=== PATIENT | female | born 1970 | race Caucasian/White ===

== ENCOUNTER 2016-10-31 20:16 | Emergency (ER) | payer OTHER ==
[2016-10-31 20:22] VITALS: TEMP 98.6
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
[2016-10-31] MEDS ORDERED: IOPAMIDOL (ISOVUE-300) 100 ML BTL ONE (21:17)
[2016-10-31 22:10] VITALS: BP 134/85; PULSE 80; RESP 16; O2SAT 94
== END 2016-10-31 22:10 | disposition home or self-care (01) ==
DX: S39.91XA Unspecified injury of abdomen, initial encounter (principal); Z85.028 Personal history of other malignant neoplasm of stomach; V49.40XA Driver injured in collision with unspecified motor vehicles in traffic accident, initial encounter; Y92.410 Unspecified street and highway as the place of occurrence of the external cause; Y99.8 Other external cause status; Y93.89 Activity, other specified
CPT/HCPCS: 82947-QW; Q9967

== ENCOUNTER 2017-03-20 06:07 | Day surgery (SDC) | payer OTHER ==
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
[~2017-03-20 06:07] MED LIST: ceFAZolin 2 GM/SWFI 2 GM/20 ML SYR IVP ONE
[2017-03-20] MEDS ORDERED: LIDOCAINE 1% 2 ML INJ ID PRN (06:17)
[2017-03-20] MEDS ORDERED: LR 1,000 ML IV ONE (06:17)
[2017-03-20] MEDS ORDERED: SILVER NITRATE APPLICATOR 1 APPL TP ONE (06:33)
[2017-03-20 06:36] VITALS: PULSE 80
[2017-03-20] MEDS ORDERED: MIDAZOLAM 2 MG/2 ML VIAL IVP ONE (08:01)
--- NOTE | 2017-03-20 08:05 | PDANEPAE ---
ANE History of Present Illness Hysteroscopy ANE Past Medical History - Cardiovascular History Hx Hypertension: No Hx Arrhythmias: No Hx Chest Pain: No Hx Coronary Artery / Peripheral Vascular Disease: No Hx CHF / Valvular Disease: No Hx Palpitations: No - Pulmonary History Hx COPD: No Hx Asthma/Reactive Airway Disease: No Hx Recent Upper Respiratory Infection: No Hx Oxygen in Use at Home: No Hx Sleep Apnea: No Sleep Apnea Screening Result - Last Documented: Negative - Neurologic History Hx Cerebrovascular Accident: No Hx Seizures: No Hx Dementia: No - Endocrine History Hx Diabetes: No Hypothyroid: No Hyperthyroid: No Obesity: mild - Renal History Hx Renal Disorders: No - Liver History Hx Hepatic Disorders: No - Neurological & Psychiatric Hx Hx Neurological and Psychiatric Disorders: No - Cancer History Hx Cancer: Yes Cancer History Comment: STOMACH CANCERS metastasised to lymph,spleen,intestines - Congenital Disorder History Hx Congenital Disorders: No - GI History GERD: moderate Hx Gastrointestinal Disorders: Yes Gastrointestinal History Comment: occ GERD - Other Health History Other Health History: Excessive uterine bleeding. BLOOD CLOTS PE'S AND DVTS-R leg/lungs. Filter was placed and D/C'd. Low Ferritin levels-iron infusion 12-04. - Chronic Pain History Chronic Pain: Yes (cramping) - Surgical History Prior Surgeries: placement of Beverly filter. subsequent removal -16. STOMACH CA (involving intestine,spleen lymph glands) SURGERY. Septoplasty ANE Review of Systems Review of Systems: - Exercise capacity METS (RN): 4 METS ANE Patient History - Allergies Allergies/Adverse Reactions: metoclopramide HCl [From Reglan] Allergy (Mild, Verified 03/06/17 13:49) Other-Enter Comments Penicillins Allergy (Mild, Verified 03/06/17 13:49) Rash adhesive tape Allergy (Verified 03/06/17 14:34) Other-Enter Comments morphine Allergy (Mild, Uncoded 04/08/16 13:18) Vomiting - Home Medications Home Medications: NK [No Known Home Meds] 03/06/17 [Last Taken Unknown] - NPO status NPO Since - Liquids (Date): 03/19/17 NPO Since - Liquids (Time): 22:00 NPO Since - Solids (Date): 03/19/17 NPO Since - Solids (Time): 18:00 - Anes Hx Anes Hx: post operative nausea - Smoking Hx Smoking Status: Never smoked Marijuana use: No - Family Anes Hx Family Hx Anesthesia Complications: NONE ANE Labs/Vital Signs - Vital Signs Blood Pressure: 127/78 Heart Rate: 80 Respiratory Rate: 16 O2 Sat (%): 94 Height: 162.56 cm Weight: 81.647 kg ANE Physical Exam - Airway Neck exam: FROM Mallampati Score: Class 3 Mouth exam: normal dental/mouth exam - Pulmonary Pulmonary: no respiratory distress, no rales or rhonchi - Cardiovascular Cardiovascular: regular rate and rhythym, no murmur, rub, or gallop - ASA Status ASA Status: II ANE Anesthesia Plan Anesthesia Plan: general endotracheal anesthesia
[2017-03-20] MEDS ORDERED: fentaNYL 250 MCG/5 ML INJ ONE (08:16)
[2017-03-20] MEDS ORDERED: GLYCOPYRROLATE 0.2 MG/1 ML VIAL ONE (08:17)
[2017-03-20] MEDS ORDERED: PROPOFOL/EMULSION 500 MG/50 ML BOTTLE IV ONE (08:17)
[2017-03-20] MEDS ORDERED: DEXAMETHASONE 4 MG/ML VIAL ONE (08:18)
[2017-03-20] MEDS ORDERED: ROCURONIUM 50 MG/5 ML VIAL ONE (08:18)
[2017-03-20] MEDS ORDERED: LIDOCAINE 2% 5 ML SDV ONE (08:18)
[2017-03-20] MEDS ORDERED: ONDANSETRON 4 MG/2 ML VIAL ONE (08:18)
[2017-03-20] MEDS ORDERED: ceFAZolin 2 GM/SWFI 2 GM/20 ML SYR IVP ONE (08:41)
--- NOTE | 2017-03-20 08:42 | PDHPUP ---
History & Physical Update H&P update statement: This history and physical update is based on an assessment of the patient which was completed after admission or registration (within 24 hours), but prior to the surgery/procedure.
[2017-03-20] MEDS ORDERED: KETOROLAC 30 MG/1 ML SDV ONE (09:09)
[2017-03-20] MEDS ORDERED: LABETALOL HCL 5 MG/ML 20 ML MDV IVP PRN (09:15)
[2017-03-20] MEDS ORDERED: LR 500 ML IV PRN (09:15)
[2017-03-20] MEDS ORDERED: HYDROmorphONE/DILAUDID 1 MG/ML INJ IVP PRN (09:15)
[2017-03-20] MEDS ORDERED: NALOXONE HCL 0.4 MG/ML INJ IVP PRN (09:15)
[2017-03-20] MEDS ORDERED: ONDANSETRON 4 MG/2 ML VIAL IVP PRN (09:15)
[2017-03-20] MEDS ORDERED: SUGAMMADEX SODIUM 200 MG/2 ML VIAL IVP ONE (09:22)
[2017-03-20] MEDS ORDERED: IBUPROFEN 600 MG TAB PO PRN (09:32)
[2017-03-20] MEDS ORDERED: HYDROCODONE/APAP 5/325 TAB PO PRN (09:33)
--- NOTE | 2017-03-20 09:35 | POSTOPPROG ---
Post Op Note Date of Operation: 03/20/17 Surgeon: Monique Cook Anesthesiologist: Dr. Isis Mcelroy Anesthesia: GET(General Endotracheal) Pre-op Diagnosis: menomenorrhagia Post-op Diagnosis: same Procedure: Hysteroscopy Dilation and [place] Daniella endometrial ablation Findings: normal uterine cavity Inf/Abcess present in the surg proc area at time of surgery?: No Depth: Organ Space EBL: Minimal Total fluids administered: 800 Specimen(s): none
[2017-03-20] MEDS ORDERED: fentaNYL 100 MCG/2 ML INJ ONE (09:51)
[2017-03-20] MEDS: fentaNYL 100 MCG/2 ML INJ IVP PRN ×3 (09:54→10:33)
[2017-03-20] MEDS ORDERED: HYDROCODONE/APAP 5/325 TAB ONE (10:51)
--- NOTE | 2017-03-20 11:05 | POSTANESTH ---
Post Anesthetic Evaluation Cardiovascular Status: Normal, Stable Respiratory Status: Normal, Stable Level of Consciousness/Mental Status: Can Participate in Eval Pain Control: Adequate, Prn Tx Ordered Nausea/Vomiting Control: Adequate, Prn Tx Ordered Complications Possibly Related to Anesthesia: None Noted
[2017-03-20 11:51] VITALS: BP 124/88; O2SAT 93
[2017-03-20 11:54] VITALS: RESP 16; TEMP 98.1
--- NOTE | 2017-03-20 22:47 | GOP ---
[f rep st] OPERATIVE REPORT DATE OF OPERATION: 03/20/2017 SURGEON: Monique Cook MD ANESTHESIA: General. ANESTHESIOLOGIST: Isis Mcelroy MD PREOPERATIVE DIAGNOSIS: Menometrorrhagia and symptomatic anemia. POSTOPERATIVE DIAGNOSIS: Menometrorrhagia and symptomatic anemia. PROCEDURE PERFORMED: Hysteroscopy, dilation and curettage, and Daniella endometrial ablation. FINDINGS: INDICATIONS: The patient is a 46-year-old 2, para 2-0-0-2 with a history of stage II gastric carcinoma diagnosed in 2014. She is status post surgery, chemotherapy, and radiation for her cancer and is in remission. Patient initially had amenorrhea during her cancer treatment, but she has had a recurrence of her periods and they have gotten much worse. She has severe bleeding, passing clots multiple days a month causing symptomatic anemia. The patient has had multiple blood transfusions an d evaluation of her anemia as a function of her carcinoma versus her menometrorrhagia and we feel lexy t it is mostly a symptom of her menometrorrhagia. The patient had a pelvic ultrasound which revealed a normal thin endometrial canal 3.36 cm. No masses or increased flow. A small corpus luteum cyst o n her left ovary. No other significant findings on her ultrasound. We discussed treatment options, medical management with a Mirena IUD versus surgical management, hysteroscopy, D and C, and ablation versus a total laparoscopic hysterectomy. Because of her compromised medical situation, because of h er history of cancer and likely increased adhesions, we wanted to avoid abdominal surgery and so the patient opted to have a hysteroscopy, D and C, and ablation. The patient underwent an endometrial bi opsy in my office, showed normal secretory endometrium, no evidence of hyperplasia or malignancy. Th e patient was consented for the procedure. She understood the risks and benefits. The risks includi ng bleeding, infection, damage to the uterus including possible risk of perforation, damage to other organs if perforation were to occur, incomplete treatment of the bleeding with need for additional pr ocedures. She understood these risks and benefits and agreed to proceed. DESCRIPTION OF PROCEDURE: Patient was taken to the operating room where she was placed under general anesthesia without difficulty. She was prepped and draped in the dorsal lithotomy position and her bladder had previously been drained. After adequate anesthesia was assured and a WHO time-out was pe rformed, an open-sided speculum was placed in the vagina, and a Romero tenaculum was used to grasp th e anterior lip of the cervix. The uterus sounded to 9 cm and the cervix was then progressively dilat ed with Botello dilators to a #8. The Daniella uterine manipulator was placed to calculate the length o f the cervical canal, which was 5 cm, giving a cavity length of 4. The hysteroscope was then gently advanced from the cervix to the fundus, and visualization of the uterine cavity revealed no obvious a bnormalities. No polyps or fibroids or even thickened endometrium in the endometrial canal. The hys teroscope was then removed. The Daniella endometrial ablation was gently advanced from the cervix to the fundus. The balloon was inflated and the cavity assessments were passed x2. Ablation took place over 120 seconds. The patient tolerated it well. The ablation device was removed and a final look with the hysteroscope revealed an intact endometrium with a normal good charred appearance. [place] m was removed. There was no bleeding at the level of the cervix. The patient tolerated the procedur e well. Sponge, lap, needle, and instrument counts were correct x2. The patient went to the recover y room in good condition. Estimated blood loss for the procedure was less than 10 cc. Fluid replace ment was 800 cc IV fluids. IV fluid deficit was inadequately calculated because of the setup on the fluid management system, however, estimated to be less than 50 cc. /[id number]/MODL
== END 2017-03-20 11:57 | disposition home or self-care (01) ==
LOC: FSGY 06:07
PROVIDERS: ATTEND Obstetrics & Gynecology
PROC: 0U5B8ZZ Destruction of Endometrium, Via Natural or Artificial Opening Endoscopic (ICD-10-PCS; principal; 2017-03-20 08:15)
DX: N92.1 Excessive and frequent menstruation with irregular cycle (principal); D64.9 Anemia, unspecified; Z85.028 Personal history of other malignant neoplasm of stomach
CPT/HCPCS: J0690; J1100; J1885; J2250; J2405; J2704; J3010

== ENCOUNTER → 2017-04-09 | Outpatient (CLI) | payer OTHER | LOC: FIMAGING 11:25 | PROVIDERS: ATTEND Family Medicine | DX: Z12.31 Encounter for screening mammogram for malignant neoplasm of breast (principal) | CPT/HCPCS: G0202 ==

== ENCOUNTER → 2017-04-16 | Outpatient (CLI) | payer OTHER | LOC: FIMAGING 10:37 | PROVIDERS: ATTEND Family Medicine | DX: R92.8 Other abnormal and inconclusive findings on diagnostic imaging of breast (principal) ==

== ENCOUNTER 2017-09-21 10:03 | Emergency (ER) | payer OTHER ==
[2017-09-21] MEDS ORDERED: ONDANSETRON 4 MG/2 ML VIAL IVP ONE (10:57)
[2017-09-21] MEDS ORDERED: NS 1,000 ML IV ONE (10:57)
[2017-09-21] MEDS ORDERED: FAMOTIDINE 20 MG/NACL 50 ML IV ONE (10:57)
[2017-09-21 11:07] LABS: PLATELET COUNT 333 10^3/uL (150-400)
[2017-09-21] MEDS ORDERED: IOPAMIDOL (ISOVUE-300) 100 ML BTL ONE (11:47)
--- NOTE | 2017-09-21 11:47 | EDPHY ---
H & P Time Seen by Provider: 09/21/17 10:56 HPI/ROS: HPI Lower abdominal pain. 47-year-old female by private vehicle. This patient presents with right lower quadrant abdominal pain persistent since 5:30 a.m. This morning. She has had mild nausea but no vomiting. Denies any bloody or melenic stool. Describes having a normal bowel movement this morning. No diarrhea. Last meal was yesterday. Prior abdominal surgical history from stomach cancer. Appendix is still in. ROS: Constitutional: No fever, no chills. No weakness. Eyes: No discharge. No changes in vision. ENT: No sore throat. No nasal congestion or rhinorrhea. Respiratory: No cough. No shortness of breath. Cardiac: No chest pain, no palpitations. Gastrointestinal: As above, no vomiting, no diarrhea. Genitourinary: No hematuria. No dysuria or increased frequency with urination. Musculoskeletal: No back pain. No neck pain. No myalgias or arthralgias. Skin: No rashes. Neurological: No headache. No focal weakness or altered sensation. Past medical history: Stomach cancer, gastric ulcer, anemia, bilateral lower extremity DVT, bilateral PE, splenectomy, colectomy, partial gastrectomy, Beverly filter installed. She is not currently anticoagulated. Social history: Nonsmoker. Here by herself. No alcohol. Physical Exam: General Appearance: Alert, no distress. This patient is responding to questions appropriately and in full sentences. This patient appears well- hydrated and well-nourished. Eyes: Pupils equal and round no pallor or injection. No lid edema, erythema or injection. Respiratory: There are no retractions, lungs are clear to auscultation with good air movement bilaterally. Cardiovascular: Regular rate and rhythm. No murmur. Gastrointestinal: Abdomen is soft with moderate tenderness on palpation of the right lower quadrant, no masses, bowel sounds normal. No focal tenderness at McBurney's point. No Wynn sign. Neurological: Motor sensory function is grossly intact. Cranial nerves are normal. Gait is normal. Skin: Warm and dry, no rashes. Musculoskeletal: No CVA tenderness on palpation bilaterally. Extremities are symmetrical. All joints range without pain or impingement. Psychiatric: No agitation. No depression. Database: EKG: Imaging: CT scan of abdomen and pelvis with IV contrast: The appendix is well visualized and is normal. There is some mild thickening of the transverse colon may represent subacute colitis. No other significant abnormalities. Results were discussed with staff radiologist Dr. Leonel monsivais. Procedures: Emergency department course: Triage vital signs reviewed. She is moderately hypertensive. IV placed. She was started on IV normal saline with 1 L to be given over the next hour. At this time she is declining pain medications. She consents for CT imaging to evaluate her appendix. 12:30 p.m., patient re-evaluated. At this time she is resting comfortably. She has not required any pain medication. Repeat abdominal exam she is soft with mild and vague right lower abdominal tenderness on palpation. Results of CT scan discussed with her. She denies any significant urinary symptoms. Urinalysis noted to be positive for leukocyte esterase and myoglobin. She feels comfortable going home and I feel she is safe for discharge. I will give her a prescription for Keflex which she can fill should she developed urinary tract infection symptoms. Follow-up and return to emergency department precautions were discussed with her in detail. All of her questions were answered. She was discharged home in good condition. Differential Diagnosis: The differential diagnosis on this patient includes but is not limited to appendicitis, urinary tract infection, ureterolithiasis, ovarian cyst. This represents a partial list of diagnoses considered. These considerations are based on history, physical exam, past history, reassessment and diagnostic testing. Smoking Status: Never smoked Constitutional: Initial Vital Signs Temperature (C) 36.9 C 09/21/17 10:19 Heart Rate 95 09/21/17 10:19 Respiratory Rate 16 09/21/17 10:19 Blood Pressure 149/98 H 09/21/17 10:19 O2 Sat (%) 95 09/21/17 10:19 O2 Delivery Mode Room Air Allergies/Adverse Reactions: metoclopramide HCl [From Reglan] Allergy (Mild, Verified 09/21/17 10:18) Other-Enter Comments Penicillins Allergy (Mild, Verified 09/21/17 10:18) Rash adhesive tape Allergy (Verified 09/21/17 10:18) Other-Enter Comments morphine Allergy (Mild, Uncoded 09/21/17 10:18) Vomiting Home Medications: Medication Instructions Recorded Ibuprofen [Motrin (*)] 600 mg PO Q6HRS PRN #30 tab 03/20/17 Levothyroxine 09/21/17 Nitrofurantoin Monohyd/M-Cryst 100 mg PO BID #14 capsule 09/21/17 [Macrobid 100 mg Capsule] Medical Decision Making - Diagnostics Imaging Results: Imaging Impressions Abdomen CT 09/21/17 11:43 Impression: 1. Normal appendix. No renal calculi or obstruction. 2. Segmental mild thickening and cervical fat proliferation of the distal transverse colon suggesting subacute infectious or inflammatory colitis. Findings were communicated by telephone with Dr. Celia Rene MD at 09/21/2017 12:16 - Data Points Laboratory Results: Laboratory Results 09/21/17 10:45 09/21/17 10:45 09/21/17 09/21/17 09/21/17 11:15 10:45 10:45 WBC RBC Hgb Hct MCV MCH MCHC RDW Plt Count MPV Neut % (Auto) Lymph % (Auto) Rooks % (Auto) Eos % (Auto) Baso % (Auto) Nucleat RBC Rel Count Absolute Neuts (auto) Absolute Lymphs (auto) Absolute Monos (auto) Absolute Eos (auto) Absolute Basos (auto) Absolute Nucleated RBC Immature Gran % Immature Gran # Sodium 139 mEq/L mEq/L (135-145) Potassium 4.4 mEq/L mEq/L (3.3-5.0) Chloride 104 mEq/L mEq/L (97-110) Carbon Dioxide 27 mEq/l mEq/l (22-31) Anion Gap 8 mEq/L mEq/L (8-16) BUN 13 mg/dL mg/dL (7-23) Creatinine 0.9 mg/dL mg/dL (0.6-1.0) Estimated GFR > 60 Glucose 91 mg/dL mg/dL (70-100) Calcium 9.2 mg/dL mg/dL (8.5-10.4) Total Bilirubin 0.8 mg/dL mg/dL (0.1-1.4) Conjugated Bilirubin 0.5 mg/dL mg/dL (0.0-0.5) Unconjugated Bilirubin 0.3 mg/dL mg/dL (0.0-1.1) AST 21 IU/L IU/L (14-46) ALT 23 IU/L IU/L (9-52) Alkaline Phosphatase 119 IU/L IU/L (38-126) Total Protein 7.1 g/dL g/dL (6.3-8.2) Albumin 3.8 g/dL g/dL (3.5-5.0) Lipase < 10 IU/L L IU/L (23-300) Beta HCG, Qual NEGATIVE Urine Color YELLOW Urine Appearance CLEAR Urine pH 5.0 (5.0-7.5) Ur Specific Sneads 1.013 (1.002-1.030) Urine Protein NEGATIVE (NEGATIVE) Urine Ketones NEGATIVE (NEGATIVE) Urine Blood 1+ H (NEGATIVE) Urine Nitrate NEGATIVE (NEGATIVE) Urine Bilirubin NEGATIVE (NEGATIVE) Urine Urobilinogen NEGATIVE EU EU (0.2-1.0) Ur Leukocyte Esterase 1+ H (NEGATIVE) Urine RBC 1-3 /hpf /hpf (0-3) Urine WBC 1-3 /hpf /hpf (0-3) Ur Epithelial Cells 1+ /lpf /lpf (NONE-1+) Urine Bacteria 1+ /hpf H /hpf (NONE SEEN) Urine Mucus TRACE /lpf /lpf (NONE-1+) Urine Glucose NEGATIVE (NEGATIVE) 09/21/17 10:45 WBC 11.43 10^3/uL H 10^3/uL (3.80-9.50) RBC 3.69 10^6/uL L 10^6/uL (4.18-5.33) Hgb 11.8 g/dL L g/dL (12.6-16.3) Hct 35.2 % L % (38.0-47.0) MCV 95.4 fL fL (81.5-99.8) MCH 32.0 pg pg (27.9-34.1) MCHC 33.5 g/dL g/dL (32.4-36.7) RDW 15.4 % H % (11.5-15.2) Plt Count 333 10^3/uL 10^3/uL (150-400) MPV 9.8 fL fL (8.7-11.7) Neut % (Auto) 80.6 % H % (39.3-74.2) Lymph % (Auto) 11.8 % L % (15.0-45.0) Rooks % (Auto) 6.3 % % (4.5-13.0) Eos % (Auto) 0.6 % % (0.6-7.6) Baso % (Auto) 0.4 % % (0.3-1.7) Nucleat RBC Rel Count 0.0 % % (0.0-0.2) Absolute Neuts (auto) 9.21 10^3/uL H 10^3/uL (1.70-6.50) Absolute Lymphs (auto) 1.35 10^3/uL 10^3/uL (1.00-3.00) Absolute Monos (auto) 0.72 10^3/uL 10^3/uL (0.30-0.80) Absolute Eos (auto) 0.07 10^3/uL 10^3/uL (0.03-0.40) Absolute Basos (auto) 0.05 10^3/uL 10^3/uL (0.02-0.10) Absolute Nucleated RBC 0.00 10^3/uL 10^3/uL (0-0.01) Immature Gran % 0.3 % % (0.0-1.1) Immature Gran # 0.03 10^3/uL 10^3/uL (0.00-0.10) Sodium Potassium Chloride Carbon Dioxide Anion Gap BUN Creatinine Estimated GFR Glucose Calcium Total Bilirubin Conjugated Bilirubin Unconjugated Bilirubin AST ALT Alkaline Phosphatase Total Protein Albumin Lipase Beta HCG, Qual Urine Color Urine Appearance Urine pH Ur Specific Sneads Urine Protein Urine Ketones Urine Blood Urine Nitrate Urine Bilirubin Urine Urobilinogen Ur Leukocyte Esterase Urine RBC Urine WBC Ur Epithelial Cells Urine Bacteria Urine Mucus Urine Glucose Medications Given: Discontinued Medications Sodium Chloride (Ns) 1,000 mls @ 0 mls/hr IV EDNOW ONE; Wide Open PRN Reason: Protocol Stop: 09/21/17 10:58 Last Admin: 09/21/17 11:23 Dose: 1,000 mls Famotidine/Sodium Chloride (Pepcid 20 Mg (Premix)) 50 mls @ 200 mls/hr IV EDNOW ONE Stop: 09/21/17 11:11 Last Admin: 09/21/17 11:22 Dose: 50 mls Ondansetron HCl (Zofran) 4 mg IVP EDNOW ONE Stop: 09/21/17 10:58 Last Admin: 09/21/17 11:28 Dose: Not Given Departure - Departure Disposition: Home, Routine, Self-Care Clinical Impression: Lower abdominal pain Condition: Good Instructions: Acute Abdominal Pain (ED) Additional Instructions: Read and follow provided instructions. Follow-up with your primary care physician in 1-2 days for re-evaluation. I have written you a prescription for nitrofurantoin. This is an antibiotic. He can fill this if he developed urinary tract infection symptoms such as fever , burning with urination or increased frequency with urination. Return to the emergency department for worsening abdominal pain, fever, vomiting , blood in your stool or other serious concerns. Referrals: Sterling Black MD [Primary Care Provider] - As per Instructions Prescriptions: Nitrofurantoin Monohyd/M-Cryst [Macrobid 100 mg Capsule] 100 mg PO BID #14 capsule
[2017-09-21 12:03] VITALS: BP 138/85
== END 2017-09-21 13:07 | disposition home or self-care (01) ==
DX: R10.31 Right lower quadrant pain (principal); E86.9 Volume depletion, unspecified; Z85.028 Personal history of other malignant neoplasm of stomach
CPT/HCPCS: 96365; J2405; Q9967

== ENCOUNTER → 2018-02-09 | Outpatient (CLI) | payer OTHER | LOC: FIMAGING 08:25 | PROVIDERS: ATTEND Internal Medicine Hematology & Oncology | DX: Z12.31 Encounter for screening mammogram for malignant neoplasm of breast (principal) ==

== ENCOUNTER 2018-04-30 20:32 | Emergency (ER) | payer OTHER ==
[2018-04-30] MEDS ORDERED: NS 500 ML IV ONE (22:11)
--- NOTE | 2018-04-30 22:16 | EDPHY ---
H & P Stated Complaint: SOB ON EXERTION, R CALF PAIN/HX DVT'S Time Seen by Provider: 04/30/18 22:00 HPI/ROS: HPI The patient presents with right calf swelling which has been present since today which started slowly and has gotten progressively worse. She notices an ache in her popliteal fossa in a sensation of warmth in the area. The symptoms are mild though feels similar to her prior DVT. She also notices that she is more short of breath on exertion. When she walks up a flight of stairs she has to sit and catch her breath. This started this afternoon. She says yesterday she would of been able to walk up the stairs without any difficulty. She does not have any chest pain or shortness of breath at rest. The patient has a history of gastric cancer which was diagnosed about 3 years ago. This was complicated by DVT PE which was initially treated with Lovenox and bridged to Coumadin and followed by an IVC filter. Her IVC filter was removed about 1 year ago. Her cancer is nearly in remission she believes. She is not undergoing any active treatments though is having surveillance imaging performed, last about [address] scan of her chest abdomen pelvis which was unremarkable.. REVIEW OF SYSTEMS 10 systems were reviewed and negative with the exception of the elements mentioned in the history of present illness. PMHx: History of gastric cancer status post chemotherapy, history of DVT and PE , previously with IVC filter that has been removed about 1 year ago, history of anemia requiring iron transfusions, oncologist is Dr. Meeks, primary care doctor is Dr. Sofia Jacinto Hx: Here with her PHYSICAL General Appearance: Alert, no distress Eyes: Pupils equal and round no pallor or injection ENT, Mouth: Mucous membranes moist Respiratory: There are no retractions, lungs are clear to auscultation Cardiovascular: Regular rate and rhythm Gastrointestinal: Abdomen is soft and non-tender, no masses, bowel sounds normal Neurological: A&O, moves all extremities Skin: Warm and dry, no rashes Musculoskeletal: Neck is supple non tender Extremities: right lower leg is slightly edematous with tenderness in the popliteal fossa and lateral area of warmth without any erythema, full range of motion Psychiatric: Patient is oriented X 3, there is no agitation Source: Patient Exam Limitations: No limitations - Personal History LMP (Females 10-55): Unknown Current Tetanus Diphtheria and Acellular Pertussis (TDAP): Yes Tetanus Vaccine Date: 2014 - Medical/Surgical History Hx Asthma: No Hx Chronic Respiratory Disease: No Hx Diabetes: No Hx Cardiac Disease: No Hx Renal Disease: No Hx Cirrhosis: No Hx Alcoholism: No Hx HIV/AIDS: No Hx Splenectomy or Spleen Trauma: Yes Other PMH: PMH:stomach cancer, gastric ulcer, anemia, bilat LE dvt, bilat PE, HYPOTHYROIDISM. PSH:septum surgery, dental, splenectomy, colectomy and partial gastrectomy, green filter insertion, ABLASION, IVC FILTER PLACED LATER REMOVAL - Social History Smoking Status: Never smoked Constitutional: Initial Vital Signs Temperature (C) 36.4 C 04/30/18 20:42 Heart Rate 84 04/30/18 20:42 Respiratory Rate 16 04/30/18 20:42 Blood Pressure 173/91 H 04/30/18 20:42 O2 Sat (%) 98 04/30/18 20:42 O2 Delivery Mode Room Air Allergies/Adverse Reactions: metoclopramide HCl [From Reglan] Allergy (Mild, Verified 09/21/17 10:18) Other-Enter Comments Penicillins Allergy (Mild, Verified 09/21/17 10:18) Rash adhesive tape Allergy (Verified 09/21/17 10:18) Other-Enter Comments morphine Allergy (Mild, Uncoded 09/21/17 10:18) Vomiting Home Medications: Medication Instructions Recorded Levothyroxine 09/21/17 Medical Decision Making - Diagnostics EKG Interpretation: EKG: Complete interpretation has been separately recorded in the [facility] archive. Summary impression: Normal sinus rhythm Imaging Results: Imaging Impressions Chest X-Ray 04/30/18 22:11 Impression: Question mild diskoid atelectasis or scarring in the lingula. No other findings for acute cardiopulmonary abnormality. Extremity Venous Study 04/30/18 22:11 Impression: No deep venous thrombosis right leg. Results called and discussed with Jud Madera MD at 04/30/2018 22:46. Imaging: Discussed imaging studies w/ call center director Radiologist, I viewed and interpreted images myself Differential Diagnosis: 48-year-old female with history of gastric cancer, DVT/PE, anemia requiring iron transfusions, presents from home with right calf swelling and pain as well as dyspnea on exertion for the last 1 day. Here, she has normal vital signs, is generally well-appearing, I do appreciate some mild right calf swelling and tenderness. Given that she is not on any anticoagulation and no longer has her IVC filter, she is certainly at risk for DVT PE, though her cancer does seem to be mostly in remission. Her vital signs are normal which is reassuring. She could have a Fuchs's cyst, pneumonia, CHF, anemia as cause of her symptoms as well. I do not think she has a cellulitis of her leg based on the clinical appearance of it. The patient was observed in the emergency department and maintained stable vital signs with no worsening of her symptoms. Labs were checked and were unremarkable including BNP and D-dimer. Chest x-ray and DVT ultrasound were normal. I suspect the patient's risk for pulmonary embolism is quite low even though she does have a history of this. With normal vital signs, no DVT on ultrasound , negative D-dimer, I do not think CT scan of her chest needs to be performed today. I did talk to the patient about the diagnostic uncertainty surrounding her presentation today. She could be developing a viral illness I suppose. I believe we have ruled out all emergency conditions that could be causing her shortness of breath and leg swelling. She feels comfortable going home, though I have encouraged low threshold to return to the emergency department if she is worse in any way. She can follow up with her primary care doctor in a few days if her symptoms continue. - Data Points Laboratory Results: Laboratory Results 04/30/18 22:05 04/30/18 22:05 04/30/18 04/30/18 04/30/18 22:05 22:05 22:05 WBC 8.53 10^3/uL 10^3/uL (3.80-9.50) RBC 3.79 10^6/uL L 10^6/uL (4.18-5.33) Hgb 12.3 g/dL L g/dL (12.6-16.3) Hct 36.4 % L % (38.0-47.0) MCV 96.0 fL fL (81.5-99.8) MCH 32.5 pg pg (27.9-34.1) MCHC 33.8 g/dL g/dL (32.4-36.7) RDW 16.0 % H % (11.5-15.2) Plt Count 297 10^3/uL 10^3/uL (150-400) MPV 9.9 fL fL (8.7-11.7) Neut % (Auto) 59.3 % % (39.3-74.2) Lymph % (Auto) 29.9 % % (15.0-45.0) [place] % (Auto) 8.9 % % (4.5-13.0) Eos % (Auto) 1.1 % % (0.6-7.6) Baso % (Auto) 0.6 % % (0.3-1.7) Nucleat RBC Rel Count 0.0 % % (0.0-0.2) Absolute Neuts (auto) 5.06 10^3/uL 10^3/uL (1.70-6.50) Absolute Lymphs (auto) 2.55 10^3/uL 10^3/uL (1.00-3.00) Absolute Monos (auto) 0.76 10^3/uL 10^3/uL (0.30-0.80) Absolute Eos (auto) 0.09 10^3/uL 10^3/uL (0.03-0.40) Absolute Basos (auto) 0.05 10^3/uL 10^3/uL (0.02-0.10) Absolute Nucleated RBC 0.00 10^3/uL 10^3/uL (0-0.01) Immature Gran % 0.2 % % (0.0-1.1) Immature Gran # 0.02 10^3/uL 10^3/uL (0.00-0.10) D-Dimer 0.48 ug/mLFEU ug/mLFEU (0.00-0.50) Sodium 134 mEq/L L mEq/L (135-145) Potassium 4.2 mEq/L mEq/L (3.5-5.2) Chloride 102 mEq/L mEq/L (97-110) Carbon Dioxide 30 mEq/l mEq/l (22-31) Anion Gap 2 mEq/L L mEq/L (6-14) BUN 14 mg/dL mg/dL (7-23) Creatinine 0.8 mg/dL mg/dL (0.6-1.0) Estimated GFR > 60 Glucose 96 mg/dL mg/dL (70-100) Calcium 9.2 mg/dL mg/dL (8.5-10.4) NT-Pro-B Natriuret Pep 100 pg/mL pg/mL (0-125) Medications Given: Discontinued Medications Sodium Chloride (Ns) 500 mls @ 1,000 mls/hr IV EDNOW ONE PRN Reason: Protocol Stop: 04/30/18 22:40 Last Admin: 04/30/18 22:49 Dose: 500 mls Departure - Departure Disposition: Home, Routine, Self-Care Clinical Impression: Shortness of breath, Leg edema, right Condition: Good Instructions: Shortness of Breath (ED) Additional Instructions: We did not figure out today what has been causing your shortness of breath and leg pain. Because of this, if your worse in any way or have any concerns, please return to the emergency department for recheck. Please make sure to take it easy over the next few days. If your symptoms do not resolve, please follow-up with your primary care doctor or return here. Referrals: Sterling Black MD [Primary Care Provider] - As per Instructions Bertram Meeks MD [Medical Doctor] - As per Instructions
[2018-04-30 22:19] LABS: PLATELET COUNT 297 10^3/uL (150-400)
[2018-04-30 23:04] VITALS: BP 137/95
== END 2018-04-30 23:08 | disposition home or self-care (01) ==
DX: R06.02 Shortness of breath (principal); R60.9 Edema, unspecified; E86.9 Volume depletion, unspecified; C16.9 Malignant neoplasm of stomach, unspecified; Z79.01 Long term (current) use of anticoagulants

== ENCOUNTER → 2018-06-01 | Outpatient (CLI) | payer OTHER | LOC: FIMAGING 16:44 | PROVIDERS: ATTEND Internal Medicine Hematology & Oncology | DX: M79.632 Pain in left forearm (principal); M25.532 Pain in left wrist ==

== ENCOUNTER → 2018-07-20 | Outpatient (CLI) | payer OTHER | LOC: FIMAGING 12:15 | PROVIDERS: ATTEND Surgery | DX: R10.11 Right upper quadrant pain (principal) | CPT/HCPCS: 78226; A9537 ==

== ENCOUNTER 2018-07-22 10:27 | Inpatient (IN) | payer OTHER ==
--- NOTE | 2018-07-22 08:00 | GHP ---
[f rep st] HISTORY AND PHYSICAL DATE OF ADMISSION: 07/22/2018 CHIEF COMPLAINT: Abdominal pain. HISTORY OF PRESENT ILLNESS: The patient is a 48-year-old woman with a history of stage IIIB gastric carcinoma, who underwent resection in March 2015. She had positive lymph nodes and a positive ext ernal margin. She then underwent radiation therapy and continued with 5-FU, which was completed in 2015. She has had intermittent abdominal pain, nausea, vomiting, including 2 ER visits. It can occur at random times as well as after meals. She has decreased eating due to this and has had w eight loss since then. She had a CT scan obtained of her chest, abdomen, and pelvis which showed no evidence of metastasis. There was persistent circumferential wall thickening of the mid to distal tr ansverse colon, and there was a contracted gallbladder. She followed and had a HIDA scan with absolu tely no filling of the gallbladder. She did have prompt uptake into the liver and excretion into the duodenum, and again, even after prolonged study, no uptake into the gallbladder indicating acute or chronic cholecystitis. PAST MEDICAL HISTORY: Iron deficiency anemia, gastric cancer, history of DVT/PE. PAST SURGICAL HISTORY: Partial gastrectomy. She also had POISER surgery. SOCIAL HISTORY: She is a nonsmoker. She is . FAMILY HISTORY: No family history of gastric cancer. REVIEW OF SYSTEMS: Abdominal pain, nausea, weight loss. No fevers or chills. PHYSICAL EXAMINATION: GENERAL: Pleasant, well-nourished, well-groomed woman. HEENT: Normocephalic . No gross hearing deficits. Mucous membranes moist. Pupils equal and round. LUNGS: Clear to aus cultation bilaterally. CARDIAC: Regular rate. No peripheral edema. ABDOMEN: Soft, tender. Previ ous scars noted. SKIN: Warm and dry. PSYCH: Mood and affect normal. RESULTS: Reviewed per HPI. IMPRESSION AND PLAN: The patient is a 48-year-old woman with history of gastric cancer, status post partial gastrectomy and radiation therapy, who now presents with acute versus chronic cholecystitis. I will take her to the operating room for a laparoscopic, possible open cholecystectomy. She unders tands the risks are higher in her due to her previous abdominal surgeries and radiation. Risks inclu de infection, bleeding, damage to surrounding structures such as the common bile duct. She understan ds she has a high risk of adhesions, and especially if this has been acute cholecystitis, that there may be more inflammation. She had her questions answered to her satisfaction, signed the informed co domenico. /[id number]/MODL
[2018-07-22] MEDS ORDERED: ceFAZolin 2 GM/DEXTROSE 100 ML IV ONE (10:41)
[2018-07-22] MEDS ORDERED: LR 1,000 ML IV ONE (10:41)
[2018-07-22] MEDS ORDERED: BUPIVACAINE 0.5% 30 ML SDV ONE (10:52)
[2018-07-22] MEDS ORDERED: MIDAZOLAM 2 MG/2 ML VIAL IVP ONE (11:30)
--- NOTE | 2018-07-22 11:31 | PDANEPAE ---
ANE History of Present Illness kellee garcia ANE Past Medical History - Cardiovascular History Hx Hypertension: No Hx Arrhythmias: No Hx Chest Pain: No Hx Coronary Artery / Peripheral Vascular Disease: No Hx CHF / Valvular Disease: No Hx Palpitations: No - Pulmonary History Hx COPD: No Hx Asthma/Reactive Airway Disease: No Hx Recent Upper Respiratory Infection: No Hx Oxygen in Use at Home: No Hx Sleep Apnea: No - Neurologic History Hx Cerebrovascular Accident: No Hx Seizures: No Hx Dementia: No - Endocrine History Hx Diabetes: No Hypothyroid: No Hyperthyroid: No Obesity: mild - Renal History Hx Renal Disorders: No - Liver History Hx Hepatic Disorders: No - Neurological & Psychiatric Hx Hx Neurological and Psychiatric Disorders: No - Cancer History Hx Cancer: Yes Cancer History Comment: 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 BLOOD CLOTS PE'S AND DVTS-R leg/lungs. Filter was placed and D/C'd. Low Ferritin levels-iron infusion -17. - Chronic Pain History Chronic Pain: Yes (cramping) - Surgical History Prior Surgeries: placement of Beverly filter. subsequent removal 3-16. STOMACH CA (involving intestine,spleen lymph glands) SURGERY. Septoplasty ANE Review of Systems Review of Systems: - Exercise capacity Exercise capacity: >=4 METS ANE Patient History - Allergies Allergies/Adverse Reactions: metoclopramide HCl [From Reglan] Allergy (Mild, Verified 09/21/17 10:18) Other-Enter Comments Penicillins Allergy (Mild, Verified 09/21/17 10:18) Rash adhesive tape Allergy (Verified 09/21/17 10:18) Other-Enter Comments morphine Allergy (Mild, Uncoded 09/21/17 10:18) Vomiting - Home Medications Home Medications: Levothyroxine 09/21/17 [Last Taken 07/21/18] - NPO status NPO Status: no food or drink >8 hours NPO Since - Liquids (Date): 07/21/18 NPO Since - Liquids (Time): 20:00 NPO Since - Solids (Date): 07/21/18 NPO Since - Solids (Time): 18:00 - Anes Hx Anes Hx: no prior problems - Smoking Hx Smoking Status: Never smoked - Family Anes Hx Family Hx Anesthesia Complications: NONE ANE Labs/Vital Signs - Vital Signs Blood Pressure: 143/94 Heart Rate: 67 Respiratory Rate: 16 O2 Sat (%): 98 Height: 162.56 cm Weight: 83.915 kg ANE Physical Exam - Airway Mallampati Score: Class 2 Mouth exam: normal dental/mouth exam - Pulmonary Pulmonary: no respiratory distress - Cardiovascular Cardiovascular: regular rate and rhythym - ASA Status ASA Status: II ANE Anesthesia Plan Anesthesia Plan: general endotracheal anesthesia
[2018-07-22] MEDS ORDERED: LIDOCAINE 2% 5 ML SDV ONE (12:04)
[2018-07-22] MEDS ORDERED: HYDROmorphONE/DILAUDID 2 MG/ML INJ ONE (12:05)
[2018-07-22] MEDS ORDERED: ONDANSETRON 4 MG/2 ML VIAL ONE ×2 (12:05→15:14)
[2018-07-22] MEDS ORDERED: DEXAMETHASONE 4 MG/ML VIAL ONE (12:05)
[2018-07-22] MEDS ORDERED: ROCURONIUM 100 MG/10 ML VIAL ONE (12:05)
[2018-07-22] MEDS ORDERED: KETOROLAC 30 MG/1 ML SDV ONE (12:05)
[2018-07-22] MEDS ORDERED: SUCCINYLCHOLINE CHLORIDE 200 MG/10 ML SYR IVP ONE (12:05)
[2018-07-22] MEDS ORDERED: PROPOFOL 200 MG/20 ML VIAL ONE (12:06)
[2018-07-22] MEDS ORDERED: ePHEDrine SULFATE 25 MG/5 ML SYR ONE (12:39)
[2018-07-22] MEDS ORDERED: GLYCOPYRROLATE 0.2 MG/1 ML VIAL ONE (12:41)
[2018-07-22] MEDS ORDERED: PHENYLEPHRINE HCL 100 MCG/ML SYR ONE (12:42)
[2018-07-22] MEDS ORDERED: ALBUMIN 5% 250 ML BOTTLE IV ONE (14:22)
[2018-07-22] MEDS ORDERED: SUGAMMADEX SODIUM 200 MG/2 ML VIAL IVP ONE ×2 (14:40→14:52)
[2018-07-22] MEDS ORDERED: traMADol 50 MG TAB PO PRN (14:47)
--- NOTE | 2018-07-22 14:50 | POSTOPPROG ---
Post Op Note Date of Operation: 07/22/18 Surgeon: Amy Morales Patternmaker Plastics: lester Anesthesiologist: franky Anesthesia: GET(General Endotracheal) Pre-op Diagnosis: cholecystitis Post-op Diagnosis: same Indication: 48 yo with cholecystitis hx gastric ca, resection radiation Procedure: lap jose Findings: contracted intrahepatic gallbladder Inf/Abcess present in the surg proc area at time of surgery?: No EBL: 100-500 Specimen(s): gallbladder and liver
[2018-07-22] MEDS ORDERED: ALBUTEROL 3 ML DEYVIAL IH PRN (15:08)
[2018-07-22] MEDS ORDERED: LR 500 ML IV PRN (15:08)
[2018-07-22] MEDS ORDERED: ONDANSETRON 4 MG/2 ML VIAL IVP PRN (15:08)
[2018-07-22] MEDS ORDERED: NALOXONE HCL 0.4 MG/ML INJ IVP PRN (15:08)
[2018-07-22] MEDS ORDERED: HYDROmorphONE/DILAUDID 1 MG/ML INJ ONE (15:13)
[2018-07-22] MEDS: HYDROmorphONE/DILAUDID 1 MG/ML INJ IVP PRN ×4 (15:17→19:26)
[2018-07-22] MEDS ORDERED: fentaNYL 100 MCG/2 ML INJ ONE (15:27)
[2018-07-22] MEDS: fentaNYL 100 MCG/2 ML INJ IVP PRN ×2 (15:28→15:36)
[2018-07-22] MEDS: HYDROCODONE/APAP 5/325 TAB PO PRN ×2 (16:39→17:30)
[2018-07-22] MEDS: NS 1,000 ML IV SCH (16:42)
--- NOTE | 2018-07-22 17:23 | SOAPPROG ---
SOAP Progress Note Assessment/Plan: Assessment: POD # 0 s/p very difficult intrahepatic lap jose. Drain with serosang. Having pain but tolerable. Plan: 07/22/18 17:23 Objective: Vital Signs Temp Pulse Resp BP Pulse Ox 36.4 C 75 16 134/82 H 99 07/22/18 16:31 07/22/18 16:31 07/22/18 16:31 07/22/18 16:31 07/22/18 16:31 Laboratory Results 07/22/18 14:37 07/21/18 07/22/18 07/23/18 05:59 05:59 05:59 Intake Total 2380 Output Total 620 Balance 1760 ICD10 Worksheet Patient Problems: Problems Problem Status Onset Hematemesis Acute Intractable vomiting with nausea Acute Leg swelling Acute Low hemoglobin and low hematocrit Acute Lower GI hemorrhage Acute Menometrorrhagia Acute Pulmonary embolism Acute Syncope and collapse Acute
[2018-07-22] MEDS ORDERED: ALBUTEROL 60 PUFFS/8 GM MDI IH PRN (17:30)
[2018-07-22] MEDS: ONDANSETRON 4 MG/2 ML VIAL IVP PRN (19:18)
[2018-07-22] MEDS: HYDROmorphONE/DILAUDID 6 MG/30 ML PCA IV PRN (20:26)
[2018-07-23] MEDS: ONDANSETRON 4 MG/2 ML VIAL IVP PRN (01:32)
[2018-07-23] MEDS: diphenhydrAMINE 12.5 MG/5 ML UDCUP PO PRN ×4 (01:38→21:54)
[2018-07-23 05:12] LABS: PLATELET COUNT 188 10^3/uL (150-400)
[2018-07-23] MEDS: LEVOTHYROXINE 100 MCG TAB PO SCH (05:52)
--- NOTE | 2018-07-23 07:14 | SOAPPROG ---
SOAP Progress Note Assessment/Plan: Assessment/Plan: POD # 1 s/p very difficult intrahepatic lap jose. Pain controlled Bilious drainage from BENJAMIN. HIDA to eval for bile leak Consult GI Clear liquid diet Dispo: inpatient for likely bile leak. Seen with Dr. Morales S: doing well this am, in good spirits. 2 episodes of emesis last night. nausea but much better today O: laying in bed, comfortable, NAD No increased WOB +BS, abd soft, nondistended, appropriately tender ruq BENJAMIN with sanguinous/bilious fluid Dressings changed Objective: Vital Signs Temp Pulse Resp BP Pulse Ox 37.0 C 90 16 140/84 H 92 07/23/18 06:00 07/23/18 06:00 07/23/18 06:00 07/23/18 06:00 07/23/18 06:00 Laboratory Results 07/23/18 04:36 07/23/18 04:36 07/22/18 07/23/18 07/24/18 05:59 05:59 05:59 Intake Total 2930 Output Total 1135 100 Balance 1795 -100 ICD10 Worksheet Patient Problems: Problems Problem Status Onset Hematemesis Acute Intractable vomiting with nausea Acute Leg swelling Acute Low hemoglobin and low hematocrit Acute Lower GI hemorrhage Acute Menometrorrhagia Acute Pulmonary embolism Acute Syncope and collapse Acute
[2018-07-23] MEDS: NS 1,000 ML IV SCH ×2 (10:32→22:47)
--- NOTE | 2018-07-23 12:29 | ASMTCMCOM ---
CM Note CM Note Notes: Pt admitted for gallbladder surgery, she has a hx of gastric carcinoma. She lives at home with her and works. No therapies ordered, anticipate she will dc home when medically stable. CM available for any changes. DC Plan: Independent Date Signed: 07/23/2018 12:28 PM Electronically Signed By:Pooja Bryan RN
--- NOTE | 2018-07-23 14:07 | PDMN ---
Medical Necessity Medical necessity: [facility] S365 Lap Jose, amb: 48 yo w/ acute cholecystitis s/p lap jose. Initally OBS but pt w/ post op complications as pt had very difficult intrahepatic lap jose per surgeon. Pt developed severe pain requiring dilaudid FIBERGLASS TECHNICIAN overnight and HIDA scan reveals bile leak. Change to IP status 07/23/18@1356 per MD order.
--- NOTE | 2018-07-23 14:58 | GCON ---
[f rep st] CONSULTATION CHIEF COMPLAINT: This is a 48-year-old woman status post cholecystectomy with bile leak. HISTORY OF PRESENT ILLNESS: I have been asked to see this very pleasant 48-year -old woman by Dr. Amy Morales in consultation for evaluation for post cholecystectomy bile leak. The patient has a history of stage IIIB gastric carcinoma and underwent resection in 2014. She was found to have positive lymph nodes and a positive external margin. She underwent radiation therapy, as well as 5-FU. She completed chemotherapy in June 2015. Recently, she has had some intermittent abdominal pain with nausea and vomiting, including 2 ER visits. She is also having some chest discomfort. She has decreased eating as a result and has lost weight. She had a CT scan of her chest, abdomen, and pelvis that showed no evidence of metastatic disease. She had some circumferential wall thickening of the distal and transverse colon, and a noted contracted gallbladder. She had a HIDA scan with no filling of the gallbladder. She did undergo a cholecystectomy, which was somewhat difficult per surgeon's report. Postop, she was noted to have output of bilious material from her BENJAMIN drain, as well as elevated liver function tests. She had a HIDA scan that showed radiotracer in the gallbladder fossa, as well as in the BENJAMIN drain suggesting a bile leak. She has had previous gastrectomy due to her prior history of gastric cancer. She had a Billroth II gastrectomy. I have been asked to see this patient for further evaluation. PAST MEDICAL HISTORY: Remarkable for iron deficient anemia, gastric cancer, history of DVT, and pulmonary embolus. PAST SURGICAL HISTORY: Remarkable for Billroth II gastrectomy and also previous CONVERTIBLE SOFA BEDSPRING TESTER surgery. SOCIAL HISTORY: Nonsmoker and nondrinker. She is . FAMILY HISTORY: Negative as it pertains to chief complaint. MEDICATIONS: Acetaminophen, hydrocodone, albuterol, diphenhydramine, Dilaudid, levothyroxine, Zofran, tramadol. ALLERGIES: Metoclopramide, penicillin, and adhesive tape, as well as morphine. REVIEW OF SYSTEMS: Negative for 10 systems other than that mentioned in HPI. PHYSICAL EXAM: VITAL SIGNS: Blood pressure 137/74, pulse 86, respiratory rate 16, and 92% saturation on room air. HEENT: Normocephalic, atraumatic. EOMI. Neck is supple. No cervical adenopathy. Mucous membranes moist. LUNGS: Clear. CARDIAC: Normal S1 and S2 without murmur. ABDOMEN: Remarkable for a drain in the right abdomen with bilious material. Slight tenderness to palpation. No hepatosplenomegaly. EXTREMITIES: Without clubbing, cyanosis, or edema. SKIN: Warm, dry, and intact. NEUROLOGIC: Nonfocal. PSYCHIATRIC: Alert and oriented x3 with normal affect. LABORATORY DATA: White count 13.5, hemoglobin 9.2, hematocrit 28.1, and platelets 188,000. Chemistries: Serum sodium 134, potassium 5.3, chloride 104 , CO2 of 24, BUN 13, creatinine 0.7, and blood sugar 101. Total bilirubin 0.7, AST 2888, ALT 2208, alkaline phosphatase 78, total protein 5.8, and albumin 3.2. IMPRESSION: A 48-year-old woman with prior history of gastric cancer, status post cholecystectomy. Patient with abnormal liver function tests and HIDA scan suggesting bile leak. The patient does have a difficult anatomy, Billroth II. This would make endoscopic retrograde cholangiopancreatography extremely complicated, with probably a less than 20% success rate. RECOMMENDATIONS: 1. Discussed the case with Dr. Martinez. 2. We will observe the patient over the weekend. 3. We will monitor output of the BENJAMIN drain. 4. If evidence of persistent leak, could consider an attempt at ERCP, but would recommend with the assistance of Interventional Radiology, jailyn. Would recommend having IR place a wire across the biliary system into the duodenum to facilitate ERCP. Will follow with you. Thank you for allowing me to participate in the care of this patient. /[id number]/MODL MTDD
[2018-07-23] MEDS: ACETAMINOPHEN 325 MG TAB PO PRN (15:01)
--- NOTE | 2018-07-23 15:30 | SOAPPROG ---
SOAP Progress Note Assessment/Plan: Assessment: Brief onc f/u note: - patient well known to me with Hx of Stage IIIB gastric CA dx 03/2015 s/p surgery/xrt/chemo and hx of iron deficiency due to GI blood loss now admitted with cholecystitis s/p cholecystectomy. So far there is no clinical evidence to support recurrent CA. Plan: - please ask the patient to follow up with me 1-2 weeks after discharge. We won' t follow on a regular basis during this hospitalization, but please call with questions or unexpected findings. Thanks. Subjective: Post op pain, but othewise feeling ok. Draining a fair amount of bile from drain. Objective: Vital Signs Temp Pulse Resp BP Pulse Ox 37.0 C 78 16 122/61 H 95 07/23/18 14:00 07/23/18 15:18 07/23/18 15:18 07/23/18 14:00 07/23/18 15:18 Laboratory Results 07/23/18 04:36 07/23/18 04:36 07/21/18 07/22/18 07/23/18 23:59 23:59 23:59 Intake Total 2930 Output Total 655 1600 Balance 2275 -1600 Physical Exam - Physical Exam General Appearance: alert, mild distress Skin: warm/dry Neuro/Psych: oriented x 3 ICD10 Worksheet Patient Problems: Problems Problem Status Onset Hematemesis Acute Intractable vomiting with nausea Acute Leg swelling Acute Low hemoglobin and low hematocrit Acute Lower GI hemorrhage Acute Menometrorrhagia Acute Pulmonary embolism Acute Syncope and collapse Acute
[2018-07-23] MEDS: HYDROmorphONE/DILAUDID 6 MG/30 ML PCA IV PRN (23:17)
[2018-07-24] MEDS: LEVOTHYROXINE 100 MCG TAB PO SCH ×2 (04:46→07:59)
[2018-07-24] MEDS: ACETAMINOPHEN 325 MG TAB PO PRN ×2 (07:18→15:27)
[2018-07-24] MEDS: ONDANSETRON 4 MG/2 ML VIAL IVP PRN ×2 (07:28→15:28)
[2018-07-24] MEDS: NS 1,000 ML IV SCH ×2 (10:26→21:05)
--- NOTE | 2018-07-24 10:33 | SOAPPROG ---
SOAP Progress Note Assessment/Plan: Assessment: POD # 2 s/p very difficult intrahepatic lap jose. Drain with bilous/ serosanguinous fluid. HIDA scan showed bile leak that is being evacuated well by BENJAMIN drain. GI consulted At this point we are both monitoring the output of the bile. I do not think that it is likely to seal on its own. However it is a little early to tell. 1 option would be surgical exploration and see if there is a specific duct that can be clipped. Another option would be a rendezvous procedure between IR and GI. CBC stable and LFTs worsening Patient reports little to no drainage around the drain exit site. Plan to repeat labs tomorrow S: Patient appears to be in good spirits today and is asking if/when she can start walking around the unit. She seems very motivated to be up and moving. Still with persistent RUQ pain O: General: Pleasant, well-nourished and well-groomed, appears to be feeling better since yesterday. at bedside HENT: Normocephalic, no gross hearing deficits, mucous membranes moist, pupils equal and round, no scleral icterus Lungs: Clear to auscultation bilaterally, No increased work of breathing Cardiac: Regular rate, no peripheral edema Abdomen: Bowel sounds present, soft and appropriately tender. Incisions clean dry and intact, BENJAMIN drain with bilious fluid. No drainage on dressing (changed 4 hours prior to us seeing her) Skin: Warm and dry. Psych: Mood and affect normal Neuro: Grossly intact Plan: 1. Continue to closely monitor bile output from BENJAMIN drain. If no decrease, or there is an increase it in the amount of drainage, will discuss proceeding with IR guided ERCP vs OR 2. Encourage ambulation around the unit as tolerated 3. Clears for now 4. Repeat LFTs tomorrow 07/22/18 17:23 07/24/18 10:26 07/24/18 10:34 07/24/18 10:38 07/24/18 11:20 Objective: Vital Signs Temp Pulse Resp BP Pulse Ox 36.9 C 96 16 132/64 H 92 07/24/18 07:40 07/24/18 07:40 07/24/18 07:40 07/24/18 07:40 07/24/18 07:40 Laboratory Results 07/24/18 04:55 07/24/18 04:55 07/23/18 07/24/18 07/25/18 05:59 05:59 05:59 Intake Total 2936 620 Output Total 4668 2422 325 Balance 1795 -1800 -325 ICD10 Worksheet Patient Problems: Problems Problem Status Onset Hematemesis Acute Intractable vomiting with nausea Acute Leg swelling Acute Low hemoglobin and low hematocrit Acute Lower GI hemorrhage Acute Menometrorrhagia Acute Pulmonary embolism Acute Syncope and collapse Acute
--- NOTE | 2018-07-24 13:53 | SOAPPROG ---
PETE Progress Note Assessment/Plan: Assessment: 1. Bile leak 2. 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 RUQ pain Plan: 1. Monitor BENJAMIN output and consistency for now 2. I feel that she may need further intervention for biliary drainage if not improved 5 days post-op 3. If ongoing leak then would attempt ERC after IR placement of biliary wire to help with facilitating access for endoscopic drainage 4. If a transhepatic biliary wire can be placed and ERC fails then IR can place a percutaneous internal/external biliary drain to treat the leak and internalize this later. 5. Will follow for now. Check AM LFTs, PT/INR and LFTs. 6. NPO after midnight 07/24/18 13:50 Subjective: CC: RUQ pain Bile leak Doing overall pretty well. Still with BENJAMIN output that is bilious and with ongoing RUQ pain. Objective: Vital Signs Temp Pulse Resp BP Pulse Ox 37.3 C 94 16 96/68 L 93 07/24/18 11:19 07/24/18 11:19 07/24/18 11:19 07/24/18 11:19 07/24/18 11:19 Laboratory Results 07/24/18 04:55 07/24/18 04:55 07/23/18 07/24/18 07/25/18 05:59 05:59 05:59 Intake Total 2930 620 Output Total 1135 2420 550 Balance 1795 -1800 -550 Physical Exam - Physical Exam General Appearance: no apparent distress EENT: normal ENT inspection Neck: supple Respiratory: lungs clear Cardiac/Chest: regular rate, rhythm Abdomen: soft, other (Mild TTP RUQ and epigastrium. BENJAMIN output bilious), No guarding, No rebound Skin: warm/dry, No jaundice Extremities: No pedal edema Neuro/Psych: alert, oriented x 3 ICD10 Worksheet Patient Problems: Problems Problem Status Onset Hematemesis Acute Intractable vomiting with nausea Acute Leg swelling Acute Low hemoglobin and low hematocrit Acute Lower GI hemorrhage Acute Menometrorrhagia Acute Pulmonary embolism Acute Syncope and collapse Acute
[2018-07-25 05:30] LABS: PLATELET COUNT 162 10^3/uL (150-400)
[2018-07-25] MEDS: LEVOTHYROXINE 100 MCG TAB PO SCH (06:07)
[2018-07-25] MEDS: ONDANSETRON 4 MG/2 ML VIAL IVP PRN ×2 (06:11→14:34)
[2018-07-25] MEDS: ACETAMINOPHEN 325 MG TAB PO PRN ×3 (06:11→23:48)
[2018-07-25] MEDS: NS 1,000 ML IV SCH ×2 (07:36→17:43)
--- NOTE | 2018-07-25 12:33 | SOAPPROG ---
PETE Progress Note Assessment/Plan: Assessment: 1. Bile leak 2. 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 RUQ pain 4. Elevated LFTs: suspect ischemia or cauterized injury 5. Leukocytosis Plan: 1. Monitor BENJAMIN output and consistency for now 2. I feel that she may need further intervention for biliary drainage if not improved 5 days post-op 3. If ongoing leak then will either need laparoscopic evaluation to see if a leak can be found and closed or ERC/rendezvous attempt for biliary stenting 4. If operative and endoscopic attempts are unsuccessful then percutaneous internal/external drainage should be done 5. Monitor LFTs. If ischemic or traumatic then should improve readily and already a bit better today 6. Monitor WBC. This is likely elevated from some component of the acute hepatitis and biliary peritonitis related to the leak 7. Clears today 07/25/18 12:29 Subjective: CC: RUQ pain intermittent and unchanged. Decreased biliary BENJAMIN output from yesterday. No fever, diarrhea, N/V Objective: Vital Signs Temp Pulse Resp BP Pulse Ox 37.0 C 71 14 98/53 L 90 L 07/25/18 11:34 07/25/18 11:34 07/25/18 11:34 07/25/18 11:34 07/25/18 11:34 Laboratory Results 07/25/18 04:31 07/24/18 04:55 07/24/18 07/25/18 07/26/18 05:59 05:59 05:59 Intake Total 620 1200 Output Total 2420 1455 560 Balance -1800 -1455 640 Physical Exam - Physical Exam General Appearance: no apparent distress EENT: pharynx normal Neck: supple Respiratory: lungs clear Cardiac/Chest: regular rate, rhythm Abdomen: soft, other (BENJAMIN drain bilious), No distended, No guarding, No rebound, No ascites ICD10 Worksheet Patient Problems: Problems Problem Status Onset Hematemesis Acute Intractable vomiting with nausea Acute Leg swelling Acute Low hemoglobin and low hematocrit Acute Lower GI hemorrhage Acute Menometrorrhagia Acute Pulmonary embolism Acute Syncope and collapse Acute
--- NOTE | 2018-07-25 14:48 | SOAPPROG ---
SOAP Progress Note Assessment/Plan: Assessment: POD # 3 s/p very difficult intrahepatic lap jose. Drain with bilous/ serosanguinous fluid. HIDA scan showed bile leak that is being evacuated well by BENJAMIN drain. GI consulted Bile output via the BENJAMIN drain has slowed significantly over the past 24 hours, which is a good indication that the leak might seal on its own. Continue to monitor closely. The other options would be surgical exploration to see if there is a specific duct that can be clipped, or a rendezvous procedure between IR and GI. Given patient's difficult anatomy, and overall improvement, watch and wait. LFTs improving, WBC increased Patient reports little to no drainage around the drain exit site. Immune vs inflammatory response. Denies fever/chills/malaise or any s/sx infection at all. Plan to repeat labs tomorrow to re-evaluate, monitor temp closely S: Patient has been ambulating well around the nursing unit, reports some improvement in pain since yesterday. Looks well. O: General: Pleasant, well-nourished and well-groomed, in good spirits. at bedside HENT: Normocephalic, no gross hearing deficits, mucous membranes moist, pupils equal and round, no scleral icterus Lungs: Clear to auscultation bilaterally, No increased work of breathing Cardiac: Regular rate, no peripheral edema Abdomen: Bowel sounds present, soft and appropriately tender. Incisions clean dry and intact, BENJAMIN drain with bilious fluid. Minimal bilious drainage on dressing Skin: Warm and dry. Psych: Mood and affect normal Neuro: Grossly intact Plan: 1. Continue to closely monitor bile output from BENJAMIN drain. If fails to decrease, or there is an increase it in the amount of drainage, will likely try diagnostic lap prior to IR guided ERCP 2. Encourage ambulation around the unit as tolerated 3. Clears for now, 4. Repeat CBC, LFTs tomorrow 07/22/18 17:23 07/24/18 10:26 07/24/18 10:34 07/24/18 10:38 07/24/18 11:20 07/25/18 14:45 07/25/18 14:49 07/25/18 15:35 Objective: Vital Signs Temp Pulse Resp BP Pulse Ox 37.0 C 71 14 98/53 L 90 L 07/25/18 11:34 07/25/18 11:34 07/25/18 11:34 07/25/18 11:34 07/25/18 11:34 Laboratory Results 07/25/18 04:31 07/24/18 04:55 07/24/18 07/25/18 07/26/18 05:59 05:59 05:59 Intake Total 620 1200 Output Total 0250 1450 300 Bbmgamb -4137 -0040 420 ICD10 Worksheet Patient Problems: Problems Problem Status Onset Hematemesis Acute Intractable vomiting with nausea Acute Leg swelling Acute Low hemoglobin and low hematocrit Acute Lower GI hemorrhage Acute Menometrorrhagia Acute Pulmonary embolism Acute Syncope and collapse Acute
[2018-07-25] MEDS: diphenhydrAMINE 12.5 MG/5 ML UDCUP PO PRN (15:23)
--- NOTE | 2018-07-25 19:10 | GOP ---
[f rep st] OPERATIVE REPORT DATE OF OPERATION: 07/23/2018 SURGEON: Amy Morales MD RUSTIC FENCE BUILDER: Red Klein MD. ANESTHESIA: General. ANESTHESIOLOGIST: Brent Coffey MD. PREOPERATIVE DIAGNOSIS: Acute versus chronic cholecystitis. POSTOPERATIVE DIAGNOSIS: Chronic cholecystitis. PROCEDURE PERFORMED: Laparoscopic cholecystectomy requiring 120 minutes longer than my usual time due to a contracted gallbladder that was intrahepatic. FINDINGS: Very thickened contracted gallbladder that is intrahepatic SPECIMENS: Gallbladder and liver. ESTIMATED BLOOD LOSS: 400 cc. INDICATIONS: The patient is a 48-year-old woman with a history of stage IIIB gastric carcinoma, status post gastrectomy with Christ-en-Y reconstruction, radiation and chemo. She has had increasing right upper quadrant pain that has been interfering with her life. She has had decreased appetite, decreased p.o. intake, and weight loss. Her imaging did not show any evidence of recurrence of her cancer. However, the gallbladder was contracted. I did follow this with a HIDA scan and there was prompt uptake into the biliary tree and excretion. However, the gallbladder did not fill. DESCRIPTION OF PROCEDURE: The patient was brought into the operating room, placed supine on the table, and general anesthesia was administered. Her abdomen was prepped and draped in the usual sterile fashion. I infiltrated all sites with 0.5% Marcaine prior to making incision. I elected to make an incision in the right mid abdomen due to her previous midline incision and radiation. I elevated her skin, subcutaneous tissues and I inserted the Veress needle. It passed the hanging drop test. Her abdomen insufflated easily to a pressure of 15 mmHg. I placed a 5 mm camera with a trocar at this site. I performed a small amount of adhesiolysis in order to place the 10 mm subxiphoid trocar, 5 mm trocar at the umbilicus, and another 5 mm trocar in the lower right costal margin. Her gallbladder was contracted and very difficult to grasp. I called my partner, Dr. Klein, to assist. I did not see any evidence of metastasis. I lifted her gallbladder cephalad and using a combination of sharp dissection, blunt dissection, suction dissection, as well as cautery, I began to try to expose the triangle of Calot. The anatomy in this area was not clear. I then began a dome down approach and at one point contents of the gallbladder were spilled. It was extremely thick and sludge filled. I continued my dissection and the gallbladder was extremely intrahepatic. There was bleeding from the liver bed. At 1 point, I saw a small vein and I used a clip avionics repair technician to obtain hemostasis. Using a combination of electrocautery and sharp dissection, I continued to remove the gallbladder away from the gallbladder fossa. I identified the cystic artery and I placed a stapler white load to divide this. Next, the cystic duct was difficult to clearly delineate as it was enlarged. There was only 1 structure entering the gallbladder, but it was a bit wider than normal. I was unable to obtain a cholangiogram. I did not think that opening would delineate this structure any further. I decided to dissect it very high on the gallbladder and I transected the duct with a blue load. The gallbladder was placed in an EndoCatch bag and retrieved via the 10 mm trocar. I placed QuikClot on the liver bed. Hemostasis achieved on the liver bed with a combination of clips, electrocautery , and QuikClot. The QuikClot was removed. Suction irrigation obtained. The staple lines were intact. There was no evidence of bile leak or bleeding at the end of the case. Due to this being complicated and taking at least 2 hours longer than my standard laparoscopic cholecystectomy, I left a 15 round silicone drain in the gallbladder fossa and it exited via a trocar site. It was sutured in place with silk. I removed the trocars under vision and allowed the abdomen to desufflate. I closed the fascia at the 10 mm trocar site with 0 Vicryl, skin closed with 4-0 Monocryl. Dermabond applied. She was awakened in the operating room, extubated, transferred to PACU in stable condition. /[id number]/MODL MTDD
[2018-07-25] MEDS: HYDROmorphONE/DILAUDID 6 MG/30 ML PCA IV PRN (23:48)
[2018-07-26 05:08] LABS: PLATELET COUNT 173 10^3/uL (150-400)
[2018-07-26] MEDS: LEVOTHYROXINE 100 MCG TAB PO SCH (05:19)
--- NOTE | 2018-07-26 09:08 | SOAPPROG ---
SOAP Progress Note Assessment/Plan: Assessment/Plan: 48yo F POD#4 s/p very difficult intrahepatic lap jose. Pain control SPEECH COACH Clear liquid diet Drain with bilious/serosanguinous fluid. HIDA scan showed bile leak that is being evacuated well by BENJAMIN drain. GI consulted Drain output volume decreasing. Continue to monitor Hopeful to avoid surgery - option for surgical exploration to see if there is a specific duct that can be clipped, or a rendezvous procedure between IR and GI. LFTs and WBCs improved today. Bilirubin increased - monitor Afebrile. VSS Encouraged ambulation. Dispo: continue inpt for bile leak, pain control and observations S: Patient has been ambulating well, continues to have RUQ pain c ontrolled with SPEECH COACH. tolerating clears, some nausea controlled with zofran. Headache improved with tylenol O: General: Pleasant, well-nourished and well-groomed, in good spirits. at bedside HENT: Normocephalic, no gross hearing deficits, mucous membranes moist, pupils equal and round, no scleral icterus Lungs: Clear to auscultation bilaterally, No increased work of breathing Cardiac: Regular rate, no peripheral edema Abdomen: Bowel sounds present, soft and appropriately tender. Incisions clean dry and intact, BENJAMIN drain with bilious fluid. Bilious drainage saturated dressing Skin: Warm and dry. Psych: Mood and affect normal Neuro: Grossly intact Objective: Vital Signs Temp Pulse Resp BP Pulse Ox 37.0 C 71 16 136/81 H 93 07/26/18 07:33 07/26/18 07:33 07/26/18 07:33 07/26/18 07:33 07/26/18 07:33 Laboratory Results 07/26/18 04:54 07/24/18 04:55 07/25/18 07/26/18 07/27/18 05:59 05:59 05:59 Intake Total 5767 Output Total 1455 1412 25 Balance -1455 885 -25 ICD10 Worksheet Patient Problems: Problems Problem Status Onset Hematemesis Acute Intractable vomiting with nausea Acute Leg swelling Acute Low hemoglobin and low hematocrit Acute Lower GI hemorrhage Acute Menometrorrhagia Acute Pulmonary embolism Acute Syncope and collapse Acute
[2018-07-26] MEDS: ONDANSETRON 4 MG/2 ML VIAL IVP PRN ×2 (12:11→20:12)
[2018-07-26] MEDS: ACETAMINOPHEN 325 MG TAB PO PRN ×2 (12:11→20:12)
--- NOTE | 2018-07-26 14:25 | SOAPPROG ---
SOAP Progress Note Assessment/Plan: Assessment: 1. Bile leak 2. 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 RUQ pain 4. Elevated LFTs: suspect ischemia or cauterized injury 5. Leukocytosis Plan: 1. Monitor BENJAMIN output and consistency for now 2. I feel that she may need further intervention for biliary drainage 3. If no real changes overnight I would favor a laparoscopic look and if unable to be identified or contained then IR/GI approach 4. LFTs in AM 5. WBC improved and I would suspect again improvement tomorrow 07/26/18 14:23 Subjective: CC: Bile leak ongoing. Leaking into drain pad which makes BENJAMIN output less reliable Objective: Vital Signs Temp Pulse Resp BP Pulse Ox 37.3 C 72 14 131/76 H 94 07/26/18 11:43 07/26/18 11:43 07/26/18 11:43 07/26/18 11:43 07/26/18 11:43 Laboratory Results 07/26/18 04:54 07/24/18 04:55 07/25/18 07/26/18 07/27/18 05:59 05:59 05:59 Intake Total 2297 Output Total 1455 1412 25 Balance -1455 885 -25 Physical Exam - Physical Exam General Appearance: no apparent distress EENT: pharynx normal, No scleral icterus (R), No scleral icterus (L) Neck: supple Respiratory: lungs clear Cardiac/Chest: regular rate, rhythm Abdomen: non-tender, soft, other (BENJAMIN RUQ with bilious drainage), No guarding, No rebound ICD10 Worksheet Patient Problems: Problems Problem Status Onset Hematemesis Acute Intractable vomiting with nausea Acute Leg swelling Acute Low hemoglobin and low hematocrit Acute Lower GI hemorrhage Acute Menometrorrhagia Acute Pulmonary embolism Acute Syncope and collapse Acute
--- NOTE | 2018-07-26 16:46 | ASMTCMCOM ---
CM Note CM Note Notes: Spoke with pt in the room, surrounded by her family. Pt states she is still comfortable with plan to discharge independently with support from . No therapies ordered. Pt may need to return to surgery for bile leak though managed conservatively at this point. DC date TBD. CM to follow. D/c Plan: Independent Date Signed: 07/26/2018 04:45 PM Electronically Signed By:Maty Souza
[2018-07-26] MEDS: NS 1,000 ML IV SCH (20:11)
[2018-07-26] MEDS: diphenhydrAMINE 12.5 MG/5 ML UDCUP PO PRN (20:12)
[2018-07-27] MEDS: LEVOTHYROXINE 100 MCG TAB PO SCH (05:11)
[2018-07-27] MEDS: ACETAMINOPHEN 325 MG TAB PO PRN (08:25)
[2018-07-27] MEDS: ONDANSETRON 4 MG/2 ML VIAL IVP PRN (08:26)
[2018-07-27] MEDS: NS 1,000 ML IV SCH (10:35)
--- NOTE | 2018-07-27 13:09 | SOAPPROG ---
SOAP Progress Note Assessment/Plan: Assessment: 1. Bile leak 2. 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 RUQ pain 4. Elevated LFTs: suspect ischemia or cauterized injury Plan: 1. To OR today for exploration to evaluate bile leak 2. LFTs continue to improve and I suspect related to cautery/difficult surgery and prolonged anesthesia 3. Leukocytosis improving also and felt to be due to acute hepatitis 4. If unsuccessful surgical closure then will plan for rendezvous ERC 5. NPO 07/27/18 13:06 Subjective: CC: Ongoing RUQ pain. Persistent biliary leak. Objective: Vital Signs Temp Pulse Resp BP Pulse Ox 36.9 C 68 14 126/70 H 95 07/27/18 11:17 07/27/18 11:54 07/27/18 11:54 07/27/18 11:17 07/27/18 11:54 Laboratory Results 07/27/18 04:08 07/27/18 04:08 07/26/18 07/27/18 07/28/18 05:59 05:59 05:59 Intake Total 2297 2750 1000 Output Total 1412 978 30 Balance 885 1772 970 Physical Exam - Physical Exam General Appearance: mild distress EENT: pharynx normal Neck: supple Respiratory: lungs clear Cardiac/Chest: regular rate, rhythm Abdomen: other (TTP. BENJAMIN drain bilious. Drain dressing bilious), No distended ICD10 Worksheet Patient Problems: Problems Problem Status Onset Hematemesis Acute Intractable vomiting with nausea Acute Leg swelling Acute Low hemoglobin and low hematocrit Acute Lower GI hemorrhage Acute Menometrorrhagia Acute Pulmonary embolism Acute Syncope and collapse Acute
[2018-07-27] MEDS ORDERED: BUPIVACAINE 0.5% 30 ML SDV ONE (14:35)
[2018-07-27] MEDS ORDERED: LR 1,000 ML IV ONE (14:40)
--- NOTE | 2018-07-27 15:06 | PDANEPAE ---
ANE History of Present Illness Exploratory laparoscopy ANE Past Medical History - Cardiovascular History Hx Hypertension: No Hx Arrhythmias: No Hx Chest Pain: No Hx Coronary Artery / Peripheral Vascular Disease: No Hx CHF / Valvular Disease: No Hx Palpitations: No - Pulmonary History Hx COPD: No Hx Asthma/Reactive Airway Disease: No Hx Recent Upper Respiratory Infection: No Hx Oxygen in Use at Home: No Hx Sleep Apnea: No Sleep Apnea Screening Result - Last Documented: Negative - Neurologic History Hx Cerebrovascular Accident: No Hx Seizures: No Hx Dementia: No - Endocrine History Hx Diabetes: No Hypothyroid: Yes Hyperthyroid: No Obesity: mild - Renal History Hx Renal Disorders: No - Liver History Hx Hepatic Disorders: No - Neurological & Psychiatric Hx Hx Neurological and Psychiatric Disorders: No - Cancer History Hx Cancer: Yes Cancer History Comment: 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 BLOOD CLOTS PE'S AND DVTS-R leg/lungs. Filter was placed and D/C'd. Low Ferritin levels-iron infusion 8- 17. Anemia - Chronic Pain History Chronic Pain: Yes (cramping) - Surgical History Prior Surgeries: placement of [place] filter. subsequent removal 3-16. STOMACH CA (involving intestine,spleen lymph glands) SURGERY. Septoplasty ANE Review of Systems Review of Systems: - Exercise capacity METS (RN): 3 METS ANE Patient History - Allergies Allergies/Adverse Reactions: metoclopramide HCl [From Reglan] Allergy (Mild, Verified 09/21/17 10:18) Other-Enter Comments Penicillins Allergy (Mild, Verified 09/21/17 10:18) Rash adhesive tape Allergy (Verified 09/21/17 10:18) Other-Enter Comments morphine Allergy (Mild, Uncoded 09/21/17 10:18) Vomiting - Home Medications Home Medications: Albuterol Sulfate [Proair Hfa] 1 - 2 puffs PO Q4H PRN 07/22/18 [Last Taken Unknown] Levothyroxine Sodium 100 mcg PO DAILY@06 07/22/18 [Last Taken 07/21/18] - NPO status NPO Since - Liquids (Date): 07/27/18 NPO Since - Liquids (Time): 11:00 NPO Since - Solids (Date): 07/24/18 NPO Since - Solids (Time): 18:00 - Anes Hx Anes Hx: no prior problems - Smoking Hx Smoking Status: Never smoked Marijuana use: No - Alcohol Use Alcohol Use: None - Family Anes Hx Family Anes Hx: none Family Hx Anesthesia Complications: NONE ANE Labs/Vital Signs - Labs Result Diagrams: 07/27/18 04:08 07/27/18 04:08 - Vital Signs Blood Pressure: 126/77 Heart Rate: 72 Respiratory Rate: 16 O2 Sat (%): 94 Height: 162.56 cm Weight: 83.915 kg ANE Physical Exam - Airway Neck exam: FROM Mallampati Score: Class 3 Mouth exam: normal dental/mouth exam - Pulmonary Pulmonary: clear to auscultation - Cardiovascular Cardiovascular: regular rate and rhythym - ASA Status ASA Status: III ANE Anesthesia Plan Anesthesia Plan: general endotracheal anesthesia
[2018-07-27] MEDS ORDERED: MIDAZOLAM 2 MG/2 ML VIAL IVP ONE (15:07)
[2018-07-27] MEDS ORDERED: fentaNYL 250 MCG/5 ML INJ ONE (15:11)
[2018-07-27] MEDS ORDERED: DEXAMETHASONE 4 MG/ML VIAL ONE (15:11)
[2018-07-27] MEDS ORDERED: PROPOFOL 200 MG/20 ML VIAL ONE (15:11)
[2018-07-27] MEDS ORDERED: ROCURONIUM 50 MG/5 ML VIAL ONE (15:11)
[2018-07-27] MEDS ORDERED: CEFAZOLIN 2 GM/DEXTROSE/100 ML BAG IV ONE (15:17)
[2018-07-27] MEDS ORDERED: ceFAZolin 2 GM/DEXTROSE 100 ML IV ONE (15:17)
[2018-07-27] MEDS ORDERED: ONDANSETRON 4 MG/2 ML VIAL ONE (16:05)
[2018-07-27] MEDS ORDERED: SUGAMMADEX SODIUM 200 MG/2 ML VIAL IVP ONE (16:05)
[2018-07-27] MEDS ORDERED: THROMBIN(HUM PLAS)/FIBRINOG/CA 5 ML VIAL TP ONE (16:30)
[2018-07-27] MEDS: levOFLOXACIN 500 MG/DEXTROSE 100 ML IV SCH (16:30)
--- NOTE | 2018-07-27 17:08 | POSTOPPROG ---
Post Op Note Date of Operation: 07/27/18 Surgeon: Amy Morales [employer] Technician: dianna Anesthesiologist: humphrey Anesthesia: GET(General Endotracheal) Pre-op Diagnosis: bile leak Post-op Diagnosis: same Indication: 48 yo with bile leak Procedure: diagnostic lap with clipping of duct of luschka Findings: leak from liver bed Inf/Abcess present in the surg proc area at time of surgery?: Yes Depth: Organ Space EBL: Minimal Specimen(s): none
[2018-07-27] MEDS ORDERED: KETOROLAC 30 MG/1 ML SDV ONE (17:10)
[2018-07-27] MEDS ORDERED: NALOXONE HCL 0.4 MG/ML INJ IVP PRN (17:11)
[2018-07-27] MEDS ORDERED: fentaNYL 100 MCG/2 ML INJ ONE (17:26)
[2018-07-27] MEDS: fentaNYL 100 MCG/2 ML INJ IVP PRN ×2 (17:28→17:35)
--- NOTE | 2018-07-27 17:40 | SOAPPROG ---
SOAP Progress Note Assessment/Plan: Assessment: POD # 5 s/p very difficult intrahepatic lap jose. Drain with bilous/ serosanguinous fluid. HIDA scan showed bile leak that is being evacuated well by BENJAMIN drain. GI consulted Bile output via the BENJAMIN drain has remained relatively stable over the last 24 hours, however there is noticeably more leakage around the drain site making recorded output unreliable. Plan for laparoscopy and attempt to resolve bile leak this afternoon. LFTs, WBC continuing to decrease Believe previous elevations 2/2 inflammation following difficult lap jose. Denies fever/chills/malaise or any s/sx infection at all. Plan to repeat labs tomorrow to re-evaluate, monitor temp closely S: Patient reports increased pain, malaise yesterday and today. Hasn't been able to ambulate d/t the pain. Is needing to use her [employer] pump more frequently. O: General: Pleasant, well-nourished and well-groomed. at bedside HENT: Normocephalic, no gross hearing deficits, mucous membranes moist, pupils equal and round, no scleral icterus Lungs: Clear to auscultation bilaterally, No increased work of breathing Cardiac: Regular rate, no peripheral edema Abdomen: Bowel sounds present, soft and appropriately tender. Incisions clean dry and intact, BENJAMIN drain with bilious fluid. Moderate bilious drainage on dressing Skin: Warm and dry. Psych: Mood and affect normal Neuro: Grossly intact 07/22/18 17:23 07/24/18 10:26 07/24/18 10:34 07/24/18 10:38 07/24/18 11:20 07/25/18 14:45 07/25/18 14:49 07/25/18 15:35 07/27/18 17:35 07/28/18 07:32 Objective: Vital Signs Temp Pulse Resp BP Pulse Ox 36.9 C 72 16 126/77 H 94 07/27/18 14:49 07/27/18 15:07 07/27/18 15:07 07/27/18 15:07 07/27/18 15:07 Laboratory Results 07/27/18 04:08 07/27/18 04:08 07/26/18 07/27/18 07/28/18 05:59 05:59 05:59 Intake Total 2297 2750 1000 Output Total 1412 978 440 Balance 885 1772 560 ICD10 Worksheet Patient Problems: Problems Problem Status Onset Hematemesis Acute Intractable vomiting with nausea Acute Leg swelling Acute Low hemoglobin and low hematocrit Acute Lower GI hemorrhage Acute Menometrorrhagia Acute Pulmonary embolism Acute Syncope and collapse Acute
[2018-07-27] MEDS ORDERED: HYDROmorphONE/DILAUDID 1 MG/ML INJ ONE (17:54)
[2018-07-27] MEDS: HYDROmorphONE/DILAUDID 1 MG/ML INJ IVP PRN ×2 (17:56→18:09)
--- NOTE | 2018-07-27 18:29 | POSTANESTH ---
Post Anesthetic Evaluation Cardiovascular Status: Normal, Stable Respiratory Status: Similar to Pre-op Cond. Level of Consciousness/Mental Status: Can Participate in Eval Pain Control: Adequate, Prn Tx Ordered Nausea/Vomiting Control: Adequate, Prn Tx Ordered Complications Possibly Related to Anesthesia: None Noted
[2018-07-28] MEDS: NS 1,000 ML IV SCH (00:20)
[2018-07-28] MEDS: HYDROmorphONE/DILAUDID 1 MG/ML INJ IVP PRN ×2 (01:22→08:35)
[2018-07-28] MEDS: HYDROCODONE/APAP 5/325 TAB PO PRN ×5 (03:26→20:56)
[2018-07-28] MEDS: LEVOTHYROXINE 100 MCG TAB PO SCH (05:33)
[2018-07-28] MEDS: ONDANSETRON DISINTEGRATING 4 MG TAB PO PRN (05:33)
[2018-07-28] MEDS: ACETAMINOPHEN 325 MG TAB PO PRN (06:06)
[2018-07-28] MEDS: levOFLOXACIN 500 MG/DEXTROSE 100 ML IV SCH (08:35)
[2018-07-28] MEDS: ONDANSETRON 4 MG/2 ML VIAL IVP PRN ×3 (08:35→20:54)
[2018-07-28 10:54] LABS: PLATELET COUNT 201 10^3/uL (150-400)
--- NOTE | 2018-07-28 10:54 | SOAPPROG ---
SOKRIS Progress Note Assessment/Plan: Assessment: 1. Bile leak 2. 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 RUQ pain 4. Elevated LFTs: suspect ischemia or cauterized injury Plan: 1. No bile in BENJAMIN drain this AM. Serous bloody but no bile (GREAT!) 2. RUQ improved since yesterday. 3. ADAT 4. Check LFTs and CBC today 5. Hopefully will avoid any need for ERC 07/28/18 10:52 Subjective: CC: RUQ pain improved. Objective: Vital Signs Temp Pulse Resp BP Pulse Ox 36.4 C 52 L 16 144/80 H 93 07/28/18 07:19 07/28/18 07:19 07/28/18 07:19 07/28/18 07:19 07/28/18 07:19 Laboratory Results 07/27/18 04:08 07/27/18 07/28/18 07/29/18 05:59 05:59 05:59 Intake Total 2750 3250 1200 Output Total 978 1065 140 Balance 1772 2185 1060 Physical Exam - Physical Exam General Appearance: no apparent distress Neck: supple Respiratory: lungs clear Cardiac/Chest: regular rate, rhythm Abdomen: soft, other (Mild TTP. No R/G. BENJAMIN blood and serous but no bile) ICD10 Worksheet Patient Problems: Problems Problem Status Onset Hematemesis Acute Intractable vomiting with nausea Acute Leg swelling Acute Low hemoglobin and low hematocrit Acute Lower GI hemorrhage Acute Menometrorrhagia Acute Pulmonary embolism Acute Syncope and collapse Acute
--- NOTE | 2018-07-28 15:42 | ASMTCMCOM ---
CM Note CM Note Notes: Chart reviewed and attempted to meet w Pt, but she was not available. Pt's Pain in RUQ has improved today. CM available if needs arise. PLAN: Pt will likely go home Independently. Date Signed: 07/28/2018 03:41 PM Electronically Signed By:Odalys Dixon
--- NOTE | 2018-07-28 16:34 | SOAPPROG ---
SOAP Progress Note Assessment/Plan: Assessment: s/p very difficult intrahepatic lap jose. Now s/p diagnostic laparoscopy with clipping duct of luschka. Better today Continue abx, advance diet S: Isabel feels better today O: General: Pleasant, well-nourished and well-groomed. at bedside HENT: Normocephalic, no gross hearing deficits, mucous membranes moist, pupils equal and round, no scleral icterus Lungs: Clear to auscultation bilaterally, No increased work of breathing Cardiac: Regular rate, no peripheral edema Abdomen: Bowel sounds present, soft and appropriately tender. Incisions clean dry and intact, BENJAMIN drain with SEROSANGUINOUS fluid. Skin: Warm and dry. Psych: Mood and affect normal Neuro: Grossly intact 07/22/18 17:23 07/24/18 10:26 07/24/18 10:34 07/24/18 10:38 07/24/18 11:20 07/25/18 14:45 07/25/18 14:49 07/25/18 15:35 07/27/18 17:35 07/28/18 07:32 07/28/18 16:32 Objective: Vital Signs Temp Pulse Resp BP Pulse Ox 36.4 C 62 16 120/67 93 07/28/18 16:00 07/28/18 16:00 07/28/18 16:00 07/28/18 16:00 07/28/18 16:00 Laboratory Results 07/28/18 10:43 07/27/18 04:08 07/27/18 07/28/18 07/29/18 05:59 05:59 05:59 Intake Total 2750 3250 1200 Output Total 978 1065 245 Balance 1772 2185 955 ICD10 Worksheet Patient Problems: Problems Problem Status Onset Hematemesis Acute Intractable vomiting with nausea Acute Leg swelling Acute Low hemoglobin and low hematocrit Acute Lower GI hemorrhage Acute Menometrorrhagia Acute Pulmonary embolism Acute Syncope and collapse Acute
[2018-07-29] MEDS: ONDANSETRON 4 MG/2 ML VIAL IVP PRN ×4 (00:59→22:08)
[2018-07-29] MEDS: LEVOTHYROXINE 100 MCG TAB PO SCH ×2 (05:17→05:19)
[2018-07-29] MEDS: ONDANSETRON DISINTEGRATING 4 MG TAB PO PRN (05:19)
[2018-07-29] MEDS: HYDROCODONE/APAP 5/325 TAB PO PRN (05:19)
[2018-07-29] MEDS ORDERED: BISACODYL 10 MG SUPP PR PRN (06:50)
[2018-07-29] MEDS ORDERED: LACTULOSE 20 GM/30 ML UDCUP PO PRN (06:50)
[2018-07-29] MEDS ORDERED: POLYETHYLENE GLYCOL 3350 17 GM PKT PO PRN (06:50)
[2018-07-29] MEDS ORDERED: MAGNESIUM HYDROXIDE 30 ML UDCUP PO PRN (06:50)
[2018-07-29] MEDS ORDERED: KETOROLAC 15 MG/1 ML SDV IVP PRN (08:44)
--- NOTE | 2018-07-29 09:38 | SOAPPROG ---
SOAP Progress Note Assessment/Plan: Assessment: Path with signet ring. returned twice to discuss with Isabel and her family. Dilaudid working better than oxy s/p very difficult intrahepatic lap jose. Now s/p diagnostic laparoscopy with clipping duct of luschka. Better today Continue abx, advance diet as dennise. Has been able to have small amounts of bread , pretzel, etc. without issue. Goal for pain and nausea to be well-controlled with PO medication prior to d/c. S: Isabel feels better today, reports emesis secondary to PO pain medication. Plan to d/c norco and trial PO oxy to reduce N/V. O: General: Pleasant, well-nourished and well-groomed. HENT: Normocephalic, no gross hearing deficits, mucous membranes moist, pupils equal and round, no scleral icterus Lungs: Clear to auscultation bilaterally, No increased work of breathing Cardiac: Regular rate, no peripheral edema Abdomen: Bowel sounds present, soft and appropriately tender. Lap incisions clean dry and intact. BENJAMIN drain with SEROSANGUINOUS fluid, surrounding dressing with minimal bilious fluid in need of dressing change. Skin: Warm and dry. Psych: Mood and affect normal Neuro: Grossly intact 07/22/18 17:23 07/24/18 10:26 07/24/18 10:34 07/24/18 10:38 07/24/18 11:20 07/25/18 14:45 07/25/18 14:49 07/25/18 15:35 07/27/18 17:35 07/28/18 07:32 07/28/18 16:32 07/29/18 09:34 07/29/18 22:25 Objective: Vital Signs Temp Pulse Resp BP Pulse Ox 36.4 C 56 L 16 143/87 H 93 07/29/18 07:30 07/29/18 07:30 07/29/18 07:30 07/29/18 07:30 07/29/18 07:30 Laboratory Results 07/28/18 10:43 07/27/18 04:08 07/28/18 07/29/18 07/30/18 05:59 05:59 05:59 Intake Total 3250 1200 Output Total 1065 305 40 Balance 2185 895 -40 ICD10 Worksheet Patient Problems: Problems Problem Status Onset Hematemesis Acute Intractable vomiting with nausea Acute Leg swelling Acute Low hemoglobin and low hematocrit Acute Lower GI hemorrhage Acute Menometrorrhagia Acute Pulmonary embolism Acute Syncope and collapse Acute
[2018-07-29] MEDS: SENNOSIDES/DOCUSATE SODIUM TAB PO SCH ×2 (09:44→20:44)
[2018-07-29] MEDS: oxyCODONE IR 5 MG TAB PO PRN ×2 (10:00→14:50)
[2018-07-29 10:13] LABS: PLATELET COUNT 149 10^3/uL (150-400)
[2018-07-29] MEDS: PROMETHAZINE HCL 25 MG TAB PO PRN (17:37)
[2018-07-29] MEDS: HYDROmorphONE/DILAUDID 2 MG TAB PO PRN ×2 (17:38→22:09)
[2018-07-30] MEDS: PROMETHAZINE HCL 25 MG TAB PO PRN ×3 (03:35→19:05)
[2018-07-30] MEDS: HYDROmorphONE/DILAUDID 2 MG TAB PO PRN ×3 (03:37→19:05)
[2018-07-30 05:36] LABS: PLATELET COUNT 208 10^3/uL (150-400)
[2018-07-30] MEDS: SENNOSIDES/DOCUSATE SODIUM TAB PO SCH ×2 (08:34→20:54)
[2018-07-30 11:51] LABS: INR 1.39 (0.83-1.16); PROTIME(PATIENT) 16.5 SEC (12.0-15.0)
--- NOTE | 2018-07-30 13:03 | SOAPPROG ---
PETE Progress Note Assessment/Plan: Assessment: 1. Bile leak 2. 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 RUQ pain 4. Elevated LFTs: suspect ischemia or cauterized injury 5. Cholestasis: thought secondary to bile duct leak and resolving acute liver injury 6. Stage IV gastric adenocarcinoma (based on malignancy in gallbladder pathology and known previous gastric signet ring malignancy) Plan: 1. Plan is for percutaneous internal/external biliary drain today to help resolve the bile duct leak 2. Discussed case with [facility] regarding percutaneous vs endoscopic drainage. Given the lower likelihood of ERC success, the duration of the leak, the failed operative approach and that typically only a smaller 7Fr stent can be placed with Christ-en-Y anatomy (which is not as ideal to encourage transpapillary drainage) the decision for percutaneous drainage was decided upon 3. Check PT/INR 4. Will await results of PTC today. I discussed her case with surgery, [facility] and IR. Patient aware. 5. NPO 07/30/18 12:59 Subjective: CC: drain intermittently bilious with ongoing output at the drain site also. Ongoing mild RUQ pain. Objective: Vital Signs Temp Pulse Resp BP Pulse Ox 36.9 C 85 18 99/50 L 91 L 07/30/18 08:00 07/30/18 08:00 07/30/18 08:00 07/30/18 08:00 07/30/18 08:00 Laboratory Results 07/30/18 05:14 07/30/18 05:14 07/29/18 07/30/18 07/31/18 05:59 05:59 05:59 Intake Total 1200 Output Total 305 220 135 Balance 895 -220 -135 PT 16.5 SEC (12.0-15.0) H 07/30/18 11:30 INR 1.39 (0.83-1.16) H 07/30/18 11:30 Physical Exam - Physical Exam General Appearance: no apparent distress Neck: supple Respiratory: lungs clear Cardiac/Chest: regular rate, rhythm Abdomen: soft, other (BENJAMIN currently serosanguinous without bile. TTP diffusely without R/G) ICD10 Worksheet Patient Problems: Problems Problem Status Onset Hematemesis Acute Intractable vomiting with nausea Acute Leg swelling Acute Low hemoglobin and low hematocrit Acute Lower GI hemorrhage Acute Menometrorrhagia Acute Pulmonary embolism Acute Syncope and collapse Acute
--- NOTE | 2018-07-30 14:08 | ASMTCMCOM ---
CM Note CM Note Notes: Pt had a drain placed for bile duct leak. Dc date unclear, plan remains the same. She will dc home w/support of when medically stable. CM available should pt's needs change. DC Plan: Independent Date Signed: 07/30/2018 02:07 PM Electronically Signed By:Pooja Bryan RN
[2018-07-30] MEDS ORDERED: PROTAMINE SULFATE 50 MG/5 ML VIAL IVP PRN (14:54)
[2018-07-30] MEDS ORDERED: MIDAZOLAM 2 MG/2 ML VIAL IVP PRN (14:54)
[2018-07-30] MEDS ORDERED: fentaNYL 100 MCG/2 ML INJ IVP PRN (14:54)
[2018-07-30] MEDS ORDERED: NALOXONE HCL 0.4 MG/ML INJ IVP PRN (14:54)
[2018-07-30] MEDS ORDERED: GLUCAGON HCL 1 MG VIAL IVP PRN (14:54)
[2018-07-30] MEDS ORDERED: ALTEPLASE 2 MG VIAL IVP PRN (14:54)
[2018-07-30] MEDS ORDERED: FLUMAZENIL 0.5 MG/5 ML MDV IVP PRN (14:54)
[2018-07-30] MEDS ORDERED: HEPARIN 10,000 UNIT/10 ML MDV (1,000 UNIT/ML) IVP PRN (14:54)
[2018-07-30] MEDS ORDERED: MEPERIDINE 25 MG/ML SYR IVP PRN (14:54)
[2018-07-30] MEDS ORDERED: NS 1,000 ML IV SCH (15:00)
--- NOTE | 2018-07-30 15:25 | PDPROPOC ---
Sedation Plan of Care Sedation Plan of Care: vital signs stable, mental status noted, patient educated of risks, benefits, alternatives, patient can tolerate sedation ASA Classification: ASA 3 Planned drugs: fentanyl, midazolam Mallampati Score: Class 3 Mallampati Reference Image: Patient passed 3-3-2 rule?: Yes
--- NOTE | 2018-07-30 15:26 | PDHPUP ---
History & Physical Update H&P update statement: This history and physical update is based on an assessment of the patient which was completed after admission or registration (within 24 hours), but prior to the surgery/procedure. PTC for bile leak s/p cholecystectomy. Plan for internal/external biliary drain placement. H&P update: H&P reviewed & patient examined, no change in patient's condition since H&P completed
[2018-07-30] MEDS: ONDANSETRON 4 MG/2 ML VIAL IVP PRN (16:45)
[2018-07-30] MEDS ORDERED: IOPAMIDOL (ISOVUE-300) 100 ML BTL ONE (16:55)
--- NOTE | 2018-07-30 17:08 | PDRADPN ---
Radiology Procedure Note Date of Procedure: 07/30/18 Radiologist: Flex Rodrigues Anesthesia: IV Sedation Pre-op Diagnosis: Bile leak Post-op Diagnosis: Bile leak Indication: Bile leak Procedure: PTC and internal/external biliary drain placement Finding(s): 8 Fr internal/external biliary drain placement without complication. Keep bag to external drainage for maximum diversion of bile until evaluated by surgery. Inf/Abcess present in the surg proc area at time of surgery?: No
--- NOTE | 2018-07-30 17:52 | SOAPPROG ---
SOAP Progress Note Assessment/Plan: Assessment/Plan: 48yo F POD#7 s/p very difficult intrahepatic lap jose. POD#2 s /p diagnostic laparoscopy with clipping duct of luschka. Pathology with signet ring gastric ca Pain control dilaudid Increased bilious drainage from BENJAMIN and around tubing. NPO - likely procedure today. IR internal/external biliary drain placement IV antibiotics Afebrile. VSS Dispo: continue inpt. seen with dr. parada. S: feeling well without worsening pain or nausea. no fevers or chills. O: General: Pleasant, well-nourished and well-groomed. HENT: Normocephalic, no gross hearing deficits, mucous membranes moist, pupils equal and round, no scleral icterus Lungs: Clear to auscultation bilaterally, No increased work of breathing Cardiac: Regular rate, no peripheral edema Abdomen: Bowel sounds present, soft and appropriately tender. Lap incisions clean dry and intact. BENJAMIN drain with bilious fluid, drain dressing saturated Skin: Warm and dry. Psych: Mood and affect normal Neuro: Grossly intact 07/30/18 17:53 Objective: Vital Signs Temp Pulse Resp BP Pulse Ox 36.4 C 82 14 98/58 L 94 07/30/18 16:51 07/30/18 16:51 07/30/18 17:16 07/30/18 17:16 07/30/18 17:22 Laboratory Results 07/30/18 05:14 07/30/18 05:14 07/29/18 07/30/18 07/31/18 05:59 05:59 05:59 Intake Total 1200 660 Output Total 305 220 375 Balance 895 -220 285 PT 16.5 SEC (12.0-15.0) H 07/30/18 11:30 INR 1.39 (0.83-1.16) H 07/30/18 11:30 ICD10 Worksheet Patient Problems: Problems Problem Status Onset Hematemesis Acute Intractable vomiting with nausea Acute Leg swelling Acute Low hemoglobin and low hematocrit Acute Lower GI hemorrhage Acute Menometrorrhagia Acute Pulmonary embolism Acute Syncope and collapse Acute
--- NOTE | 2018-07-30 18:51 | SOAPPROG ---
SOAP Progress Note Assessment/Plan: Assessment: Brief onc f/u note: - patient well known to me with Hx of Stage IIIB gastric CA dx 03/2015 s/p surgery/xrt/chemo and hx of iron deficiency due to GI blood loss now s/p cholecystectomy. Unfortunately the path showed signet ring CA consistent with her gastric primary. She is now recovering a difficult post op course. She had a biliary drain placed today. After further recovery, we will need to restage her with a PET/CT. We will also need to send her path for [facility] [employer] CDx testing for a mutation analysis. She is on for discussion at GI tumor conference on 03 AUG 2018. Plan: - Discuss at GI conference on 03 AUG 2018 - Send [facility] testing next week (lead time is 2-3 weeks for results) Thanks. Objective: Vital Signs Temp Pulse Resp BP Pulse Ox 36.9 C 87 16 106/58 L 92 07/30/18 17:40 07/30/18 17:40 07/30/18 17:40 07/30/18 17:40 07/30/18 17:40 Laboratory Results 07/30/18 05:14 07/30/18 05:14 07/28/18 07/29/18 07/30/18 23:59 23:59 23:59 Intake Total 1700 660 Output Total 485 135 460 Balance 1215 -135 200 PT 16.5 SEC (12.0-15.0) H 07/30/18 11:30 INR 1.39 (0.83-1.16) H 07/30/18 11:30 ICD10 Worksheet Patient Problems: Problems Problem Status Onset Hematemesis Acute Intractable vomiting with nausea Acute Leg swelling Acute Low hemoglobin and low hematocrit Acute Lower GI hemorrhage Acute Menometrorrhagia Acute Pulmonary embolism Acute Syncope and collapse Acute
[2018-07-31] MEDS: HYDROmorphONE/DILAUDID 2 MG TAB PO PRN ×5 (02:05→20:46)
[2018-07-31] MEDS: LEVOTHYROXINE 100 MCG TAB PO SCH (05:44)
[2018-07-31] MEDS: SENNOSIDES/DOCUSATE SODIUM TAB PO SCH ×2 (09:45→20:36)
--- NOTE | 2018-07-31 10:06 | SOAPPROG ---
SOAP Progress Note Assessment/Plan: Assessment/Plan: 48yo F POD#8 s/p very difficult intrahepatic lap jose. POD#3 s /p diagnostic laparoscopy with clipping duct of luschka. Now s/p IR internal/ external biliary drain placement Doing better. Advance diet. LFTs slightly increased today--suspect normal after drain procedure yesterday. Repeat CMP in am. Pathology with signet ring gastric ca. Appreciate oncology input. Pain control dilaudid. Can try to transition to PO. IV antibiotics Afebrile. VSS Dispo: Continue inpt. d/w with dr. parada and will see with Dr. Gillette tomorrow. S: Feeling much better since IR drain placed. Nausea, vomiting resolved. Pain better. Just sore. Has an appetite. Passing gas. O: General: Pleasant, well-nourished and well-groomed. HENT: Normocephalic, no gross hearing deficits, mucous membranes moist, pupils equal and round, no scleral icterus Lungs: Clear to auscultation bilaterally, No increased work of breathing Cardiac: Regular rate, no peripheral edema Abdomen: Bowel sounds present, soft and appropriately tender. Lap incisions clean dry and intact. BENJAMIN drain with serous fluid, biliary drain bilious. Skin: Warm and dry. Psych: Mood and affect normal Neuro: Grossly intact 07/31/18 10:03 Objective: Vital Signs Temp Pulse Resp BP Pulse Ox 37.1 C 87 16 101/64 92 07/31/18 08:04 07/31/18 08:04 07/31/18 08:04 07/31/18 08:04 07/31/18 08:04 Laboratory Results 07/30/18 05:14 07/31/18 05:01 07/30/18 07/31/18 08/01/18 05:59 05:59 05:59 Intake Total 960 Output Total 220 840 15 Balance -220 120 -15 PT 16.5 SEC (12.0-15.0) H 07/30/18 11:30 INR 1.39 (0.83-1.16) H 07/30/18 11:30 ICD10 Worksheet Patient Problems: Problems Problem Status Onset Hematemesis Acute Intractable vomiting with nausea Acute Leg swelling Acute Low hemoglobin and low hematocrit Acute Lower GI hemorrhage Acute Menometrorrhagia Acute Pulmonary embolism Acute Syncope and collapse Acute
[2018-07-31] MEDS: PROMETHAZINE HCL 25 MG TAB PO PRN ×2 (15:40→20:46)
[2018-08-01 05:02] LABS: PLATELET COUNT 177 10^3/uL (150-400)
[2018-08-01] MEDS: LEVOTHYROXINE 100 MCG TAB PO SCH (05:37)
--- NOTE | 2018-08-01 08:22 | SOAPPROG ---
SOAP Progress Note Assessment/Plan: Assessment/Plan: 48yo F POD#9 s/p very difficult intrahepatic lap jose. POD#4 s /p diagnostic laparoscopy with clipping duct of luschka. Now s/p IR internal/ external biliary drain placement, 07/30. Tolerating low fat diet. BENJAMIN drain less bilious, biliary drain draining well. Bilirubin is stable (t3.2, d 2), and hepatic transaminases trending down today. NANCY. Cr improved--1.7 to 1.1 today. Levaquin renally dosed with help of pharmacist. WBC's trending down. Pathology with signet ring gastric ca. Appreciate oncology input. PO pain control. Seen c Dr. Gillette today. Dispo: possibly tomorrow with drains if doing well. S: Feeling much better since IR drain placed. No problems eating--had an avocado. passing gas. no n/v. feels like she might need at least another day in house before going home. O: General: Pleasant, well-nourished and well-groomed. HENT: Normocephalic, no gross hearing deficits, mucous membranes moist, pupils equal and round, no scleral icterus Lungs: Clear to auscultation bilaterally, No increased work of breathing Cardiac: Regular rate, no peripheral edema Abdomen: Bowel sounds present, soft and appropriately tender. Lap incisions clean dry and intact. BENJAMIN drain with serous fluid, biliary drain bilious. Skin: Warm and dry. Psych: Mood and affect normal Neuro: Grossly intact 08/01/18 08:18 Objective: Vital Signs Temp Pulse Resp BP Pulse Ox 37.1 C 89 16 108/78 88 L 08/01/18 07:38 08/01/18 07:38 08/01/18 07:38 08/01/18 07:38 08/01/18 07:38 Laboratory Results 08/01/18 04:22 08/01/18 04:22 07/31/18 08/01/18 08/02/18 05:59 05:59 05:59 Intake Total 960 1023 581 Output Total 840 1335 Balance 120 -312 581 PT 16.5 SEC (12.0-15.0) H 07/30/18 11:30 INR 1.39 (0.83-1.16) H 04/12/19 11:30 ICD10 Worksheet Patient Problems: Problems Problem Status Onset Hematemesis Acute Intractable vomiting with nausea Acute Leg swelling Acute Low hemoglobin and low hematocrit Acute Lower GI hemorrhage Acute Menometrorrhagia Acute Pulmonary embolism Acute Syncope and collapse Acute
[2018-08-01] MEDS: PROMETHAZINE HCL 25 MG TAB PO PRN ×2 (09:27→16:17)
[2018-08-01] MEDS: SENNOSIDES/DOCUSATE SODIUM TAB PO SCH ×2 (09:29→20:17)
[2018-08-01] MEDS: HYDROmorphONE/DILAUDID 2 MG TAB PO PRN ×3 (09:30→19:19)
--- NOTE | 2018-08-01 12:02 | ASMTCMCOM ---
CM Note CM Note Notes: CM discussed with OSORIO Kim. Patient likely to discharge tomorrow with drain. Judy shared she provided drain education to . CM to follow. D/C plan: Independent Date Signed: 08/01/2018 12:01 PM Electronically Signed By:Jenna Mari
[2018-08-01] MEDS: NS 1,000 ML IV SCH (16:14)
[2018-08-01] MEDS: diphenhydrAMINE 12.5 MG/5 ML UDCUP PO PRN (19:30)
[2018-08-02] MEDS: HYDROmorphONE/DILAUDID 2 MG TAB PO PRN ×6 (02:56→22:29)
[2018-08-02] MEDS: PROMETHAZINE HCL 25 MG TAB PO PRN ×4 (02:58→23:05)
[2018-08-02] MEDS: LEVOTHYROXINE 100 MCG TAB PO SCH (05:22)
[2018-08-02] MEDS: SENNOSIDES/DOCUSATE SODIUM TAB PO SCH ×2 (09:40→20:37)
[2018-08-02] MEDS: NS 1,000 ML IV SCH (12:01)
[2018-08-02] MEDS ORDERED: IOPAMIDOL (ISOVUE 370) 100 ML BTL IV ONE (16:27)
--- NOTE | 2018-08-02 18:56 | SOAPPROG ---
SOAP Progress Note Assessment/Plan: Assessment/Plan: 48yo F POD#10 s/p very difficult intrahepatic lap jose. POD#5 s/p diagnostic laparoscopy with clipping duct of luschka. Now s/p IR internal/ external biliary drain placement, 07/30. H/o gastric CA s/p jose-en-y Pathology with signet ring gastric CA. Appreciate oncology input Tolerating low fat diet. BENJAMIN drain now serous Hepatic transaminases continue to trend down Total bilirubin increasing, today 4.1 Creatinine improved Pain and nausea controlled Additionally seen by and discussed with Dr. Gillette. Discussed with Dr. Sher - will get cholangiogram today to evaluate internal/ external drain placement, r/o obstruction. Follow labs. Will monitor closely. Dispo: continue inpatient for bile leak S: Feeling well and tolerating a low-fat diet. Nausea and pain well-controlled. Continues to have discomfort of RUQ. No fevers or chlls. O: General: Pleasant, well-nourished and well-groomed. HENT: Normocephalic, no gross hearing deficits, mucous membranes moist, pupils equal and round, no scleral icterus Lungs: Clear to auscultation bilaterally, No increased work of breathing Cardiac: Regular rate, no peripheral edema Abdomen: Bowel sounds present, soft and appropriately tender. Lap incisions clean dry and intact. BENJAMIN drain with serous fluid, biliary drain bilious. Dressings intact Skin: Warm and dry. Psych: Mood and affect normal Neuro: Grossly intact Objective: Vital Signs Temp Pulse Resp BP Pulse Ox 37.0 C 78 14 119/69 94 08/02/18 14:57 08/02/18 14:57 08/02/18 14:57 08/02/18 14:57 08/02/18 14:57 Laboratory Results 08/01/18 04:22 08/02/18 05:00 08/01/18 08/02/18 08/03/18 05:59 05:59 05:59 Intake Total 1023 1181 850 Output Total 1335 1685 1050 Balance -312 -504 -200 PT 16.5 SEC (12.0-15.0) H 07/30/18 11:30 INR 1.39 (0.83-1.16) H 07/30/18 11:30 ICD10 Worksheet Patient Problems: Problems Problem Status Onset Hematemesis Acute Intractable vomiting with nausea Acute Leg swelling Acute Low hemoglobin and low hematocrit Acute Lower GI hemorrhage Acute Menometrorrhagia Acute Pulmonary embolism Acute Syncope and collapse Acute
[2018-08-02] MEDS ORDERED: PROTOCOL POTASSIUM 1 DOSE MISC PRN (20:56)
[2018-08-02] MEDS ORDERED: LR 1,000 ML IV SCH (21:00)
[2018-08-02] MEDS ORDERED: IOPAMIDOL (ISOVUE-300) 100 ML BTL ONE (21:33)
--- NOTE | 2018-08-02 22:20 | SOAPPROG ---
SOKRIS Progress Note Assessment/Plan: Assessment: PT WITH PERSISTENT BILE LEAK BUT FEELS GOOD CHOLANGIOGRAM SHOWS UNDRAINED BILOMA CT SHOWS SOME LIVER INFARCTION AND THROMBOSED PV AFEBRILE DIFFICULT PROBLEM Plan:CONTINUE ABX AND DRAINAGE 08/02/18 22:14 Objective: Vital Signs Temp Pulse Resp BP Pulse Ox 37.2 C 87 16 112/64 92 08/02/18 19:52 08/02/18 19:52 08/02/18 19:52 08/02/18 19:52 08/02/18 19:52 Laboratory Results 08/01/18 04:22 08/02/18 05:00 08/01/18 08/02/18 08/03/18 05:59 05:59 05:59 Intake Total 1023 1181 850 Output Total 1335 168 1410 Balance -312 -171 -560 PT 16.5 SEC (12.0-15.0) H 07/30/18 11:30 INR 1.39 (0.83-1.16) H 07/30/18 11:30 ICD10 Worksheet Patient Problems: Problems Problem Status Onset Hematemesis Acute Intractable vomiting with nausea Acute Leg swelling Acute Low hemoglobin and low hematocrit Acute Lower GI hemorrhage Acute Menometrorrhagia Acute Pulmonary embolism Acute Syncope and collapse Acute
[2018-08-03 05:06] LABS: PLATELET COUNT 209 10^3/uL (150-400)
[2018-08-03] MEDS: LEVOTHYROXINE 100 MCG TAB PO SCH (05:16)
[2018-08-03] MEDS: PROMETHAZINE HCL 25 MG TAB PO PRN ×4 (05:53→23:49)
[2018-08-03] MEDS: HYDROmorphONE/DILAUDID 2 MG TAB PO PRN ×4 (05:54→21:31)
[2018-08-03] MEDS ORDERED: POTASSIUM CL 10 MEQ TAB PO ONE ×2 (07:37→19:27)
[2018-08-03] MEDS: SENNOSIDES/DOCUSATE SODIUM TAB PO SCH ×2 (09:15→19:51)
[2018-08-03] MEDS ORDERED: LR 1,000 ML IV SCH (10:30)
--- NOTE | 2018-08-03 12:12 | GOP ---
[f rep st] OPERATIVE REPORT DATE OF OPERATION: 07/27/2018 SURGEON: Amy Morales MD COASTAL TUG MATE: Kayla De Oliveira, PAC ANESTHESIA: General. ANESTHESIOLOGIST: Dr. Edouard Aguirre. PREOPERATIVE DIAGNOSIS: Bile leak. POSTOPERATIVE DIAGNOSIS: Bile leak. PROCEDURE PERFORMED: Diagnostic laparoscopy with clipping of duct of Luschka. FINDINGS: 2 small leaks from the liver bed. SPECIMENS: None. ESTIMATED BLOOD LOSS: Minimal. INDICATIONS: The patient a 48-year-old woman who underwent very difficult laparoscopic cholecystecto my on 07/22/2018. She developed a bile leak. Due to her previous Christ-en-Y partial gastrectomy, ERC P would be very difficult. At the time of surgery, the gallbladder was intrahepatic and I thought th e most likely source was a duct of Luschka. DESCRIPTION OF PROCEDURE: Patient was brought into the operating room, placed supine on the table, a nd general anesthesia was administered. Her abdomen was prepped and draped in the usual sterile fash ion. I infiltrated all sites with 0.5% Marcaine prior to making incision. I had removed her drain p reoperatively. I inserted a Veress needle through the same hole and her abdomen insufflated easily. I placed a 5-mm trocar at this site. Under direct vision, I placed a subxiphoid trocar, an umbilica l trocar, and the right lateral trocar. I explored her abdomen. There was no gross bile peritonitis . I lifted her and there was scant staining on the gallbladder fossa. There was no obvio us large leak. I performed irrigation and could see from the back of the liver bed, more toward the right side, an area that had bile. I used a clip food service cashier to clip the duct. I performed additional i rrigation, placed a Ray-Clarence in the bed, and there was still some bile staining. I examined the gallb ladder fossa again, and placed a clip in a separate area in the gallbladder fossa. The clips were ve ry difficult to place to try to seal the duct of Luschka. I also performed electrocautery. I examin ed where the staple lines were and I did not see any evidence of bile leak here. Once the bile leak was controlled, I then placed Evicel in the gallbladder fossa. I placed a 15-round silicone drain th rough a separate stab incision to lie in the gallbladder fossa. There was no evidence of bile leak a fter this. The liver was quite healthy with the exception on segment , about a 2 cm area of conges tion. The drain was sewn into place with 3-0 nylon. Ports were removed under direct vision, abdomen allowed to desufflate. The fascia at the 10 mm trocar site was closed with 0 Vicryl, skin closed wi th 4-0 Monocryl. Dermabond applied. She was awakened in the operating room, extubated, transferred to PACU in stable condition. /[id number]/MODL
--- NOTE | 2018-08-03 13:35 | SOAPPROG ---
SOAP Progress Note Assessment/Plan: Assessment/Plan: 48yo F POD#11 s/p very difficult intrahepatic lap jose. POD#6 s/p diagnostic laparoscopy with clipping duct of luschka. Now s/p IR internal/ external biliary drain placement, 07/30. H/o gastric CA s/p jose-en-y Pathology with signet ring gastric CA. Appreciate oncology input CT last night - NEW right hepatic infarction, portal vein thrombosis extending into SMV (partially occluded). Bile leak NPO today for procedure - upsizing internal/external biliary drain today as well as repositioning drain to evacuate biloma BENJAMIN drain now serous Hepatic transaminases continue to trend down. Total bilirubin stable today. Creatinine improved. WBCs slightly up. Pain and nausea controlled Additionally seen by and discussed with Dr. Gillette. Additionally discussed with Dr. Braga of IR who will do the procedure today. Dispo: continue inpatient for bile leak S: She is overall feeling well. Sleepy. Nausea and pain well-controlled. O: General: Pleasant, well-nourished and well-groomed. Parents at bedside HENT: Normocephalic, no gross hearing deficits, mucous membranes moist, pupils equal and round, no scleral icterus Lungs: No increased work of breathing Abdomen: Bowel sounds present, soft and tender. Lap incisions clean dry and intact. BENJAMIN drain with serous fluid, biliary drain bilious. Dressings intact Skin: Warm and dry. Psych: Mood and affect normal Neuro: Grossly intact Objective: Vital Signs Temp Pulse Resp BP Pulse Ox 36.8 C 77 16 109/58 L 95 08/03/18 10:52 08/03/18 10:52 08/03/18 10:52 08/03/18 10:52 08/03/18 10:52 Laboratory Results 08/03/18 04:49 08/03/18 04:49 08/02/18 08/03/18 08/04/18 05:59 05:59 05:59 Intake Total 1181 850 Output Total 6527 3872 054 Balance -504 -1680 -702 PT 16.5 SEC (12.0-15.0) H 07/30/18 11:30 INR 1.39 (0.83-1.16) H 07/30/18 11:30 ICD10 Worksheet Patient Problems: Problems Problem Status Onset Hematemesis Acute Intractable vomiting with nausea Acute Leg swelling Acute Low hemoglobin and low hematocrit Acute Lower GI hemorrhage Acute Menometrorrhagia Acute Pulmonary embolism Acute Syncope and collapse Acute
[2018-08-03] MEDS ORDERED: NALOXONE HCL 0.4 MG/ML INJ ONE (14:49)
[2018-08-03] MEDS ORDERED: MIDAZOLAM 2 MG/2 ML VIAL ONE (14:50)
[2018-08-03] MEDS ORDERED: FLUMAZENIL 0.5 MG/5 ML MDV IVP ONE (14:50)
[2018-08-03] MEDS ORDERED: fentaNYL 100 MCG/2 ML INJ ONE (14:50)
[2018-08-03] MEDS ORDERED: FLUMAZENIL 0.5 MG/5 ML MDV IVP PRN (15:10)
[2018-08-03] MEDS ORDERED: MEPERIDINE 25 MG/ML SYR IVP PRN (15:10)
[2018-08-03] MEDS ORDERED: NALOXONE HCL 0.4 MG/ML INJ IVP PRN (15:10)
[2018-08-03] MEDS ORDERED: MIDAZOLAM 2 MG/2 ML VIAL IVP PRN (15:10)
[2018-08-03] MEDS ORDERED: NS 1,000 ML IV SCH (15:15)
[2018-08-03] MEDS ORDERED: IOPAMIDOL (ISOVUE-300) 100 ML BTL ONE (15:23)
[2018-08-03] MEDS: fentaNYL 100 MCG/2 ML INJ IVP PRN (15:28)
--- NOTE | 2018-08-03 16:16 | PDRADPN ---
Radiology Procedure Note Date of Procedure: 08/03/18 Radiologist: Donna Braga Anesthesia: IV Sedation Pre-op Diagnosis: bile leak Post-op Diagnosis: same Procedure: biliary tube upsize, attempted surgical to IR drain Finding(s): Bile leak arising from the surgical bed, a 10F nephrostomy tube was placed with side hole proximal and in the CBD...no sideholes extending the length of the surgical bed...completion shows no visualization of the leak but there is also no intrahepatic duct opacification, likely due to the single hole made proximally (could not make more since they would be close to the leak) ...attempted surgical to IR drain but could not get a wire into the biloma Inf/Abcess present in the surg proc area at time of surgery?: Yes Depth: Organ Space
[2018-08-03] MEDS ORDERED: oxyCODONE IR 5 MG TAB PO PRN (16:34)
[2018-08-03] MEDS: NS 1,000 ML IV SCH (23:49)
[2018-08-04] MEDS: LEVOTHYROXINE 100 MCG TAB PO SCH (04:46)
[2018-08-04] MEDS: HYDROmorphONE/DILAUDID 2 MG TAB PO PRN ×5 (04:49→23:15)
[2018-08-04 05:11] LABS: PLATELET COUNT 224 10^3/uL (150-400)
[2018-08-04] MEDS: PROMETHAZINE HCL 25 MG TAB PO PRN ×3 (08:25→20:58)
[2018-08-04] MEDS ORDERED: LR 1,000 ML IV ONE (09:24)
[2018-08-04] MEDS ORDERED: NALOXONE HCL 0.4 MG/ML INJ IVP PRN (10:30)
[2018-08-04] MEDS ORDERED: BUPIVACAINE 0.5% 30 ML SDV ONE (10:33)
[2018-08-04] MEDS ORDERED: HEPARIN 1000 UNIT/1 ML MDV ONE (10:34)
[2018-08-04] MEDS ORDERED: ceFAZolin 1 GM/5 ML SYR ONE (10:34)
[2018-08-04] MEDS ORDERED: DEXAMETHASONE 4 MG/ML VIAL ONE (10:44)
[2018-08-04] MEDS ORDERED: LIDOCAINE 2% 5 ML SDV ONE (10:44)
[2018-08-04] MEDS ORDERED: fentaNYL 100 MCG/2 ML INJ ONE ×2 (10:44→13:00)
[2018-08-04] MEDS ORDERED: PROPOFOL 200 MG/20 ML VIAL ONE (10:44)
[2018-08-04] MEDS ORDERED: ONDANSETRON 4 MG/2 ML VIAL ONE (10:44)
[2018-08-04] MEDS ORDERED: SUGAMMADEX SODIUM 200 MG/2 ML VIAL IVP ONE (10:44)
[2018-08-04] MEDS ORDERED: ROCURONIUM 100 MG/10 ML VIAL ONE (10:44)
[2018-08-04] MEDS ORDERED: HYDROmorphONE/DILAUDID 1 MG/ML INJ IVP PRN (10:46)
[2018-08-04] MEDS ORDERED: PROMETHAZINE HCL 25 MG/ML INJ IVP PRN (10:46)
[2018-08-04] MEDS ORDERED: fentaNYL 100 MCG/2 ML INJ IVP PRN (10:46)
[2018-08-04] MEDS ORDERED: fentaNYL 250 MCG/5 ML INJ ONE (10:49)
[2018-08-04] MEDS ORDERED: MIDAZOLAM 2 MG/2 ML VIAL IVP ONE (10:50)
--- NOTE | 2018-08-04 10:55 | PDANEPAE ---
ANE Past Medical History - Cardiovascular History Hx Hypertension: No Hx Arrhythmias: No Hx Chest Pain: No Hx Coronary Artery / Peripheral Vascular Disease: No Hx CHF / Valvular Disease: No Hx Palpitations: No - Pulmonary History Hx COPD: No Hx Asthma/Reactive Airway Disease: No Hx Recent Upper Respiratory Infection: No Hx Oxygen in Use at Home: No Hx Sleep Apnea: No Sleep Apnea Screening Result - Last Documented: Negative - Neurologic History Hx Cerebrovascular Accident: No Hx Seizures: No Hx Dementia: No - Endocrine History Hx Diabetes: No Hypothyroid: Yes Hyperthyroid: No Obesity: mild - Renal History Hx Renal Disorders: No - Liver History Hx Hepatic Disorders: No - Neurological & Psychiatric Hx Hx Neurological and Psychiatric Disorders: No - Cancer History Hx Cancer: Yes Cancer History Comment: 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 BLOOD CLOTS PE'S AND DVTS-R leg/lungs. Filter was placed and D/C'd. Low Ferritin levels-iron infusion 8- 17. Anemia - Chronic Pain History Chronic Pain: Yes (cramping) - Surgical History Prior Surgeries: placement of [place] filter. subsequent removal 3-16. STOMACH CA (involving intestine,spleen lymph glands) SURGERY. Septoplasty ANE Review of Systems Review of Systems: - Exercise capacity METS (RN): 3 METS ANE Patient History - Allergies Allergies/Adverse Reactions: metoclopramide HCl [From Reglan] Allergy (Mild, Verified 09/21/17 10:18) Other-Enter Comments Penicillins Allergy (Mild, Verified 09/21/17 10:18) Rash adhesive tape Allergy (Verified 09/21/17 10:18) Other-Enter Comments morphine Allergy (Verified 07/29/18 08:48) Vomiting - Home Medications Home Medications: Albuterol Sulfate [Proair Hfa] 1 - 2 puffs PO Q4H PRN 07/22/18 [Last Taken Unknown] Levothyroxine Sodium 100 mcg PO DAILY@06 07/22/18 [Last Taken 07/21/18] - NPO status NPO Since - Liquids (Date): 08/04/18 NPO Since - Liquids (Time): 00:00 NPO Since - Solids (Date): 08/04/18 NPO Since - Solids (Time): 00:00 - Smoking Hx Smoking Status: Never smoked - Alcohol Use Alcohol Use: None - Family Anes Hx Family Hx Anesthesia Complications: NONE ANE Labs/Vital Signs - Labs Result Diagrams: 08/04/18 04:55 08/04/18 04:55 - Vital Signs Blood Pressure: 111/60 Heart Rate: 90 Respiratory Rate: 16 O2 Sat (%): 90 Height: 162.56 cm Weight: 83.915 kg ANE Physical Exam - Airway Neck exam: FROM Mallampati Score: Class 3 Mouth exam: normal dental/mouth exam - Pulmonary Pulmonary: no respiratory distress, no rales or rhonchi, clear to auscultation - Cardiovascular Cardiovascular: regular rate and rhythym, no murmur, rub, or gallop - ASA Status ASA Status: III ANE Anesthesia Plan Anesthesia Plan: general endotracheal anesthesia Lines/Monitors: central line Regional Anesthesia: TAP block
[2018-08-04] MEDS ORDERED: ROPIVACAINE HCL 150 MG/30 ML INJ ONE (11:28)
[2018-08-04] MEDS ORDERED: THROMBIN(HUM PLAS)/FIBRINOG/CA 5 ML VIAL TP ONE (12:01)
[2018-08-04] MEDS ORDERED: PHENYLEPHRINE HCL 100 MCG/ML SYR ONE ×2 (12:03→12:24)
[2018-08-04] MEDS: fentaNYL 100 MCG/2 ML INJ IVP PRN ×2 (13:00→13:25)
[2018-08-04] MEDS: SENNOSIDES/DOCUSATE SODIUM TAB PO SCH ×2 (15:18→20:58)
--- NOTE | 2018-08-04 16:29 | ASMTCMCOM ---
CM Note CM Note Notes: Pt had tube changed, has had compicated course after first surgery. No therapies ordered, anticipate she will dc home with family support when medically stable. CM availble should her needs change. DC Plan: Independent Date Signed: 08/04/2018 04:28 PM Electronically Signed By:Pooja Bryan RN
--- NOTE | 2018-08-04 18:46 | SOAPPROG ---
SOAP Progress Note Assessment/Plan: Assessment/Plan: 48yo F POD#12 s/p very difficult intrahepatic lap jose. POD#7 s/p diagnostic laparoscopy with clipping duct of luschka. Now s/p IR internal/ external biliary drain placement, 4/ with upsizing to larger tuve on 4. H/ o gastric CA s/p jose-en-y Pathology with signet ring gastric CA. Appreciate oncology input CT Thursday - NEW right hepatic infarction, portal vein thrombosis extending into SMV (partially occluded). Bile leak OR today for diagnostic laparoscopy, evacuation of biloma and replacement of BENJAMIN drain by Dr. Gillette. Consent signed and in chart. Therapeutic levaquin Continue to monitor labs - total bilirubin 7.7 today. WBCs trending up. Concern for biliary drain obstruction with elevating bilirubin and decreased biliary drain output. Will monitor and may need repositioning tomorrow. Hold on therapeutic anticoagulation for PVT until after possibly procedure tomorrow Clear liquid diet Pain and nausea controlled Additionally seen by and discussed with Dr. Gillette. Dispo: continue inpatient for bile leak S: She is nervous to have another surgery today. Reports decreased drainage from biliary drain. Pain after procedure yesterday in RUQ slightly improved. O: General: Pleasant, well-nourished and well-groomed. Parents at bedside HENT: Normocephalic, no gross hearing deficits, mucous membranes moist, pupils equal and round, + scleral icterus Lungs: No increased work of breathing Abdomen: Bowel sounds present, soft and tender RUQ. Lap incisions clean dry and intact. Biliary drain scant bilious fluid. Dressings intact Skin: Warm and dry. +Jaundice Psych: Mood and affect normal Neuro: Grossly intact Objective: Vital Signs Temp Pulse Resp BP Pulse Ox 36.6 C 86 16 115/68 92 08/04/18 17:00 08/04/18 17:00 08/04/18 17:00 08/04/18 17:00 08/04/18 17:00 Laboratory Results 08/04/18 04:55 08/04/18 04:55 08/03/18 08/04/18 08/05/18 05:59 05:59 05:59 Intake Total 929 193 1269 Output Total 2530 1735 915 Balance -1680 -1615 435 PT 16.5 SEC (12.0-15.0) H 07/30/18 11:30 INR 1.39 (0.83-1.16) H 07/30/18 11:30 ICD10 Worksheet Patient Problems: Problems Problem Status Onset Hematemesis Acute Intractable vomiting with nausea Acute Leg swelling Acute Low hemoglobin and low hematocrit Acute Lower GI hemorrhage Acute Menometrorrhagia Acute Pulmonary embolism Acute Syncope and collapse Acute
--- NOTE | 2018-08-04 19:47 | SOAPPROG ---
SOAP Progress Note Assessment/Plan: Assessment: PT WITH PERSISTENT BILE LEAK BUT FEELS GOOD CHOLANGIOGRAM SHOWS UNDRAINED BILOMA CT SHOWS SOME LIVER INFARCTION AND THROMBOSED PV AFEBRILE DIFFICULT PROBLEM Plan:CONTINUE ABX AND DRAINAGE 08/02/18 22:14 08/04/18 19:45 PATIENT WITH DECREASED DRAINAGE BUT RISING BILIRUBIN/BILIARY STENT IN PLACE BUT IR UNABLE TO DRAIN THE BILOMA RISKS AND OPTIONS FULLY DISCUSSED AND HE WISHED TO PROCEED WITH LAPAROSCOPY FOR PLACEMENT OF A DRAIN IN THE BILOMA AND TO ASSESS RIGHT LOBE LIVER VIABILITY WELL TO SEE IF THERE IS ANY OBVIOUS LEAK SITE. PATIENT HAS BEEN WISHED TO PROCEED AND UNDERSTAND THE RISKS Objective: Vital Signs Temp Pulse Resp BP Pulse Ox 37.2 C 92 16 108/72 90 L 08/04/18 19:32 08/04/18 19:32 08/04/18 19:32 08/04/18 19:32 08/04/18 19:32 Laboratory Results 08/04/18 04:55 08/04/18 04:55 08/03/18 08/04/18 08/05/18 05:59 05:59 05:59 Intake Total 270 748 1532 Output Total 2530 1735 915 Balance -1680 -1615 435 PT 16.5 SEC (12.0-15.0) H 07/30/18 11:30 INR 1.39 (0.83-1.16) H 07/30/18 11:30 ICD10 Worksheet Patient Problems: Problems Problem Status Onset Hematemesis Acute Intractable vomiting with nausea Acute Leg swelling Acute Low hemoglobin and low hematocrit Acute Lower GI hemorrhage Acute Menometrorrhagia Acute Pulmonary embolism Acute Syncope and collapse Acute
--- NOTE | 2018-08-04 19:50 | POSTOPPROG ---
Post Op Note Date of Operation: 08/04/18 Surgeon: Jude Gillette It Project Lead: NIRMAL DANIELLE Anesthesiologist: DR. CHOI Anesthesia: GET(General Endotracheal) Pre-op Diagnosis: BILOMA Post-op Diagnosis: SAME Indication: BILE LEAK Procedure: LAPAROSCOPIC DRAINAGE OF SUBHEPATIC BILOMA Findings: GREATER THAN 60 CC BUT MYELOMA NEAR THE GALLBLADDER FOSSA/VIABLE APPEARING Inf/Abcess present in the surg proc area at time of surgery?: Yes Depth: Organ Space EBL: Minimal Complications: NONE Drains: Ned Botello
[2018-08-05] MEDS: NS 1,000 ML IV SCH (01:34)
[2018-08-05] MEDS: PROMETHAZINE HCL 25 MG TAB PO PRN ×4 (03:40→22:12)
[2018-08-05] MEDS: HYDROmorphONE/DILAUDID 2 MG TAB PO PRN ×5 (03:40→21:26)
[2018-08-05] MEDS: LEVOTHYROXINE 100 MCG TAB PO SCH (05:11)
[2018-08-05 05:43] LABS: PLATELET COUNT 221 10^3/uL (150-400)
[2018-08-05] MEDS ORDERED: POLYETHYLENE GLYCOL 3350 17 GM PKT PO ONE (08:21)
[2018-08-05] MEDS ORDERED: POTASSIUM CL 10 MEQ TAB PO ONE (09:00)
[2018-08-05] MEDS: SENNOSIDES/DOCUSATE SODIUM TAB PO SCH ×2 (09:01→20:11)
--- NOTE | 2018-08-05 11:04 | SOAPPROG ---
SOAP Progress Note Assessment/Plan: Assessment: Path with signet ring. s/p very difficult intrahepatic lap jose. Now s/p diagnostic laparoscopy with clipping duct of luschka. s/p internal external drain S/p exploration with Dr. Gillette and drainage of biloma. Continue abx, advance diet as dennise. Goal for pain and nausea to be well- controlled with PO medication prior to d/c. If worsens, will discuss transfer with [facility] surgeon Will trend labs S: Isabel feels better today O: General: Pleasant, well-nourished and well-groomed. HENT: Normocephalic, no gross hearing deficits, mucous membranes moist, pupils equal and round, no scleral icterus Lungs: Clear to auscultation bilaterally, No increased work of breathing Cardiac: Regular rate, no peripheral edema Abdomen: Bowel sounds present, soft and appropriately tender. Lap incisions clean dry and intact. BENJAMIN drain and biliary drain with bilious fluid Skin: Warm and dry. Psych: Mood and affect normal Neuro: Grossly intact 07/22/18 17:23 07/24/18 10:26 07/24/18 10:34 07/24/18 10:38 07/24/18 11:20 07/25/18 14:45 07/25/18 14:49 07/25/18 15:35 07/27/18 17:35 07/28/18 07:32 07/28/18 16:32 07/29/18 09:34 07/29/18 22:25 08/05/18 11:03 Objective: Vital Signs Temp Pulse Resp BP Pulse Ox 36.6 C 84 12 110/71 90 L 08/05/18 08:31 08/05/18 08:31 08/05/18 08:31 08/05/18 08:31 08/05/18 08:31 Laboratory Results 08/05/18 05:17 08/05/18 05:15 08/04/18 08/05/18 08/06/18 05:59 05:59 05:59 Intake Total 120 2100 Output Total 1735 2250 Balance -1615 -150 PT 16.5 SEC (12.0-15.0) H 07/30/18 11:30 INR 1.39 (0.83-1.16) H 07/30/18 11:30 ICD10 Worksheet Patient Problems: Problems Problem Status Onset Hematemesis Acute Intractable vomiting with nausea Acute Leg swelling Acute Low hemoglobin and low hematocrit Acute Lower GI hemorrhage Acute Menometrorrhagia Acute Pulmonary embolism Acute Syncope and collapse Acute
[2018-08-05] MEDS: ONDANSETRON 4 MG/2 ML VIAL IVP PRN (20:17)
[2018-08-06] MEDS: HYDROmorphONE/DILAUDID 2 MG TAB PO PRN ×4 (01:26→15:45)
[2018-08-06 05:03] LABS: PLATELET COUNT 257 10^3/uL (150-400)
[2018-08-06] MEDS: PROMETHAZINE HCL 25 MG TAB PO PRN ×2 (05:26→11:15)
[2018-08-06] MEDS: LEVOTHYROXINE 100 MCG TAB PO SCH (05:26)
[2018-08-06] MEDS ORDERED: POTASSIUM CL 10 MEQ TAB PO ONE (07:23)
[2018-08-06] MEDS: SENNOSIDES/DOCUSATE SODIUM TAB PO SCH (08:03)
[2018-08-06 15:24] VITALS: BP 123/91
[2018-08-06] MEDS: ONDANSETRON 4 MG/2 ML VIAL IVP PRN (16:52)
--- NOTE | 2018-08-06 17:20 | ASMTLACE ---
LACE Length of stay for Answers: 7-13 days current admission Acuity / Level of Answers: Yes Care: Did the patient have an inpatient admission? Comorbidities - select Answers: Any tumor (including all that apply lymphoma or leukemia) Opioid dependence / Chronic pain Other Notes: DVT/PE # of Emergency department Answers: 1-2 visits in the last 6 months Score: 16 Date Signed: 08/06/2018 05:20 PM Electronically Signed By:Pooja Bryan RN
--- NOTE | 2018-08-06 17:27 | ASMTDCNOTE ---
Case Management Discharge Discharge Order Complete? Answers: Yes Patient to Obtain Answers: Other Notes: [facility] Medications Transportation Arranged Answers: [facility] Stretcher Transport will Pick (Date 08/06/2018 06:30 PM & Time) EMTALA Complete Answers: Yes Family Notified Answers: Yes Discharge Comments Notes: was notified that pt is transferring to [facility]. Emtala filled out and signed by and RN, copy in chart. Packet with notes and Emtala given to [facility]. Pt will transfer to room 612 at [place], pt and aware. Date Signed: 08/06/2018 05:27 PM Electronically Signed By:Pooja Bryan RN
--- NOTE | 2018-08-06 21:38 | GOP ---
[f rep st] OPERATIVE REPORT DATE OF OPERATION: 08/04/2018 SURGEON: Jude Gillette MD PREOPERATIVE DIAGNOSIS: Bile leak with subhepatic biloma. POSTOPERATIVE DIAGNOSIS: Bile leak with subhepatic biloma. PROCEDURE PERFORMED: Laparoscopic drainage of subhepatic biloma. FINDINGS: The patient was found to have a moderate collection of bile in the hepatic fossa, but no obvious leak site from the gallbladder bed. The right lobe of the liver appeared to be viable, although definitely ischemic in some areas. Remainder of the abdomen was relatively clean. DESCRIPTION OF PROCEDURE: The patient was taken to the operating room where she received satisfactory general endotracheal anesthesia by Dr. Carr. She was placed in the supine position, and prepped and draped in the usual sterile fashion. A periumbilical incision was made. A Veress needle was inserted. Pneumoperitoneum was established. Trocar was introduced. Laparoscope was introduced. Adequate visualization was obtained. Two other trocars were placed in the upper abdomen under direct vision. Adhesions were taken down, and the right lobe of the liver was elevated up. The chloe hepatis area in the gallbladder fossa was exposed. Bilious fluid was suctioned clear and evacuated , in the area was further irrigated. No evidence of any injury to the duodenum or main bile duct could be demonstrated. There was no obvious bile leakage at this time. The transhepatic stent was identified with no major leakage around that area. Good visualization of the previous surgery site was obtained, and, after no significant leak sac could be demonstrated. The gallbladder fossa was filled with some fibrin glue. A 15 silicone channel drain was brought in through one of the trocar sites and placed in Morison pouch in the gallbladder fossa, and secured at the skin with a silk suture. Remaining trocars were taken out under direct vision. They were closed with 4-0 Monocryl subcuticular sutures for the skin. All layers were infiltrated with 0.5% Marcaine. She tolerated the procedure well. Blood loss was negligible. No complications. Taken to the recovery room in good condition. /[id number]/MODL MTDD
== END 2018-08-06 18:24 | disposition short-term general hospital (02) | DRG 418 ==
LOC: FSGY 10:27 → F3N 14:46 → F3E 16:21 → OBSVTOIN 07-23 13:56
PROVIDERS: ADMIT Surgery; ATTEND Surgery
PROC: 0FT44ZZ Resection of Gallbladder, Percutaneous Endoscopic Approach (ICD-10-PCS; principal; 2018-07-23)
PROC: 0F9440Z Drainage of Gallbladder with Drainage Device, Percutaneous Endoscopic Approach (ICD-10-PCS; 2018-07-27)
PROC: 0FL Hepatobiliary System and Pancreas, Occlusion (ICD-10-PCS; 2018-07-27)
PROC: 0FL Hepatobiliary System and Pancreas, Occlusion (ICD-10-PCS; 2018-07-27)
PROC: 0F9530Z Drainage of Right Hepatic Duct with Drainage Device, Percutaneous Approach (ICD-10-PCS; 2018-07-30)
PROC: 0F9440Z Drainage of Gallbladder with Drainage Device, Percutaneous Endoscopic Approach (ICD-10-PCS; 2018-08-04)
PROC: 0FP4X0Z Removal of Drainage Device from Gallbladder, External Approach (ICD-10-PCS; 2018-08-04)
PROC: 0F9930Z Drainage of Common Bile Duct with Drainage Device, Percutaneous Approach (ICD-10-PCS; 2018-08-04)
DX: K81.0 Acute cholecystitis (principal); K91.89 Other postprocedural complications and disorders of digestive system; D50.9 Iron deficiency anemia, unspecified; Z86.711 Personal history of pulmonary embolism; Z86.718 Personal history of other venous thrombosis and embolism; Z85.00 Personal history of malignant neoplasm of unspecified digestive organ
CPT/HCPCS: A9537; C1729; C1769; G0378; J0330; J0690; J1100; J1170; J1644; J1885; J1956; J2250; J2310; J2370; J2405; J2704; J2795; J3010; P9041; Q9967